=== PATIENT | female | born 1960 | race Caucasian/White ===

== ENCOUNTER → 2020-07-01 13:03 | Outpatient (BNVA) | payer OTHER, SELFPAY | PROVIDERS: PCP Internal Medicine; Referring Provider Internal Medicine; Visit Provider Advanced Practice Midwife | DX: Z76.89 Persons encountering health services in other specified circumstances (principal) ==

== ENCOUNTER 2020-07-19 09:09 | Day surgery (SDC) | payer OTHER, SELFPAY ==
--- NOTE | 2020-07-18 09:56 | HO.ANESPROP2 ---
Documented by User: Myriam Sharma 07/18/20 09:59 HPI - Anesthesia Eval Consult details Narrative: 60yo F for Upper Endoscopy PMFSH Past Medical History Medical History Hx of gastritis Hx of hyperlipidemia Other cyst of bone, left thigh Family History Family History Father Lung cancer Mother History of breast cancer Hypertension Surgical History Surgical History Hx of colonoscopy Hx of hysterectomy Hx of tonsillectomy Social History Social History Alcohol intake: never Smoking Status: Never smoker Second Hand Smoke Exposure: No Use of substances other than those prescribed or required for medical reasons: No Advance Directives: No Advance Directives Information Provided: No Advance Directives on File: No Meds Allergies Allergy/AdvReac Type Severity Reaction Status Date / Time No Known Allergies Allergy Unverified 05/23/20 19:29 Home Medications Medication Instructions Recorded Confirmed Type fenofibrate 160 mg tablet 160 mg PO DAILY 07/01/20 History Exam Exam Date and Time: July 18, 2020 0956 Pertinent Lab Results Pertinent Lab Results: Laboratory Tests 05/06/20 05/06/20 10:37 10:37 WBC 4.3 L Hgb 12.4 Hct 39.2 Plt Count 269 Sodium 139 Potassium 4.4 Chloride 105 BUN 12 Creatinine 0.77 Assessment and Plan Assessment Anesthesia Assessment: Chart Reviewed Documented by User: Augustin Pike 07/19/20 11:07 PMFSH Past Medical History Medical History Hx of gastritis Hx of hyperlipidemia Other cyst of bone, left thigh Family History Family History Father Lung cancer Mother History of breast cancer Hypertension Surgical History Surgical History Hx of colonoscopy Hx of hysterectomy Hx of tonsillectomy Social History Social History Alcohol intake: never Smoking Status: Never smoker Second Hand Smoke Exposure: No Use of substances other than those prescribed or required for medical reasons: No Advance Directives: No Advance Directives Information Provided: No Advance Directives on File: No Meds Allergies Allergy/AdvReac Type Severity Reaction Status Date / Time No Known Allergies Allergy Unverified 05/23/20 19:29 Home Medications Medication Instructions Recorded Confirmed Type fenofibrate 160 mg tablet 160 mg PO DAILY 07/01/20 History Exam Airway Mallampati Class: II TM Dist: >3cm Neck ROM: Full Loose/Missing/Broken Teeth: No Heart: rrr+[id number] Lungs: cta b/l Assessment and Plan Assessment Anesthesia Assessment: Anesthesia Plan Discussed, PAT Visit and Chart Reviewed Final Anesthetic Review NPO: Yes ASA Class: II Final Preanesthetic Review: No Changes in Pt Med Stat, Meds/Allgs Chart Reviewed, Consent Obtained/Reviewed and Anes Risks/Benef Reviewed Patient Risk: Low Procedure Risk: Low Assessment/Block/Sedation in SS: Assess/Block/Sedation-SS Anesthetic Plan Anesthetic Plan: MAC: Disposition: Standard PACU
[2020-07-18 10:46] VITALS: BMI 27.4
[2020-07-19 10:26] VITALS: BP 135/83; PULSE 70; RESP 18; TEMP 35.7; O2SAT 99
[2020-07-19] MEDS: Lactated Ringers 1,000 ML 100 ML IVCONT (11:04)
[2020-07-19 11:27] VITALS: BP 108/73; PULSE 75; RESP 18; TEMP 36.2; O2SAT 98
--- NOTE | 2020-07-19 11:32 | PM.OP ---
Brief Operative Note Date of Service: 07/19/20 Pre-op diagnosis: GERD Post-op diagnosis: other (Same, hiatal hernia) Procedure: EGD with biopsy Surgeon: French Garcia Anesthesia: MAC Estimated blood loss (mL): 2.0 Pathology: other (A. EG Junction at 35cm) Condition: stable Disposition: PACU
[2020-07-19 11:42] VITALS: BP 112/70; PULSE 72; RESP 18; O2SAT 98
--- NOTE | 2020-07-19 12:30 | OP_ITS ---
SURGEON: French Garcia MD INDICATIONS: The patient presents for evaluation of gastroesophageal reflux. Full consent has been obtained from her for this, including risks of bleeding and perforation. PREOPERATIVE DIAGNOSIS: Gastroesophageal reflux. POSTOPERATIVE DIAGNOSIS: PROCEDURE PERFORMED: Esophagogastroduodenoscopy with biopsy. ESTIMATED BLOOD LOSS: COMPLICATIONS: ANESTHESIA: Monitored anesthesia care. ASSISTANTS: SPECIMENS: POSTOPERATIVE DIAGNOSES: Gastroesophageal reflux, small hiatal hernia. DESCRIPTION OF PROCEDURE: The patient was placed in the left lateral decubitus position. The Olympus video gastroscope was passed in the posterior oropharynx and upper esophagus under direct vision. The scope was passed slowly to the distal esophagus. The gastroesophageal junction appeared at 35 cm. There was a very minimal irregularity, but no evidence of esophagitis nor any definitive evidence of Barth's mucosa. There was a small hiatal hernia. The scope was advanced to pylorus and duodenum cannulated to the descending portion. The duodenum including the bulb appeared normal without mass or ulceration. The scope was withdrawn back in the stomach. The gastric antrum and body appeared normal with good peristalsis. The scope was retroflexed visualizing the proximal stomach carefully which appeared normal, without any sign of mass or ulceration. The scope was straightened out and withdrawn back into the esophagus. Biopsies were obtained at the EG junction at 35 cm. Proximal to this, the esophageal mucosa appeared normal. The scope was withdrawn from the patient. She tolerated procedure well and was returned to recovery area in stable condition. IMPRESSION: Small hiatal hernia, gastroesophageal reflux. PLAN: The results of the biopsies will be checked. At this point, she reports that she is using Nexium basically p.r.n. with good relief of any reflux symptoms. I do not think she needs to be on daily acid suppression unless her symptoms require it. If things otherwise remain stable, she can see me on a p.r.n. basis. She should have a screening colonoscopy in 5 years given negative exams in 1999 and 2014 in [place] and no family history of colon cancer. MD EFREN Choi/HUSAM / [id number]
== END 2020-07-19 12:15 | disposition home or self-care (01) ==
PROVIDERS: PCP Internal Medicine; Visit Provider Internal Medicine
PROC: 0DJ08ZZ Inspection of Upper Intestinal Tract, Via Natural or Artificial Opening Endoscopic (ICD-10-PCS; CPT 43235; principal; 2020-07-19 10:40)
DX: K21.9 Gastro-esophageal reflux disease without esophagitis (principal); K22.4 Dyskinesia of esophagus; K44.9 Diaphragmatic hernia without obstruction or gangrene; Z87.19 Personal history of other diseases of the digestive system; Z79.899 Other long term (current) drug therapy
CPT/HCPCS: 43239; 88305

== ENCOUNTER 2020-07-30 10:55 | Outpatient (REF) | payer OTHER, SELFPAY ==
[2020-07-30 11:30] LABS: COVID-19 Test Negative (Negative)
== END 2020-07-30 10:56 | disposition home or self-care (01) ==
LOC: HO.EMPCOV 10:55
PROVIDERS: PCP Internal Medicine; Visit Provider Internal Medicine
DX: Z20.828 Contact with and (suspected) exposure to other viral communicable diseases (principal)
CPT/HCPCS: 87635; C9803

== ENCOUNTER 2020-08-26 12:04 | Outpatient (REF) | payer OTHER, SELFPAY ==
[2020-08-26 13:03] LABS: COVID-19 Test Negative (Negative)
== END 2020-08-26 12:05 | disposition home or self-care (01) ==
LOC: HO.EMPCOV 12:04
PROVIDERS: Visit Provider Internal Medicine
DX: Z20.828 Contact with and (suspected) exposure to other viral communicable diseases (principal)
CPT/HCPCS: 87635; C9803

== ENCOUNTER 2020-12-26 07:42 | Outpatient (REF) | payer OTHER, SELFPAY | END 2020-12-26 07:43 | disposition home or self-care (01) | LOC: HO.EMPCOV 07:42 | PROVIDERS: Visit Provider Internal Medicine | DX: Z20.822 Contact with and (suspected) exposure to COVID-19 (principal) | CPT/HCPCS: C9803; U0003; U0005 ==

== ENCOUNTER 2021-02-24 12:56 | Outpatient (REF) | payer OTHER, SELFPAY ==
--- NOTE | ~2021-02-24 | MM_ITS ---
EXAMINATION: MM DIAGNOSTIC DIGITAL BREAST TOMOSYNTHESIS, BILATERAL CLINICAL INFORMATION: Due for yearly. Also follow-up probable benign calcifications lower outer right breast. The lifetime risk of breast cancer based on the Tyrer-Cuzick Model is 13%. COMPARISON: Mammography: 02/23/2020, 08/24/2019, 02/20/2019, 02/15/2019 (BI-RADS 0), 01/17/2018 TECHNIQUE: Digital breast tomosynthesis is performed in both the craniocaudal and mediolateral oblique views along with computer-aided detection (CAD). Synthesized 2D images are generated from the tomosynthesis. Additional magnification views right breast are obtained in the CC and ML projections. FINDINGS: There are scattered areas of fibroglandular density (ACR BI-RADS breast composition Category b). Parenchymal pattern is similar to prior studies. There is no developing density or interval mass or architectural abnormality. There is a smooth nodule again seen posterior central right breast just lateral to posterior nipple line. The axilla and skin contours are unremarkable. Calcifications for follow-up outer right breast are stable to decreased. There are now considered to be benign. Results are provided to the patient at time of visit by the technologist. MM/MM tomosynthesis diagnostic BI IMPRESSION: 1. No significant changes from prior studies. 2. Right breast calcifications are stable to decreased and now considered to be benign. ASSESSMENT: BI-RADS 2: Benign RECOMMENDATION: Routine annual mammography screening. This patient's information was entered into a reminder system with a target due date for their next mammogram.
== END 2021-02-24 12:57 | disposition home or self-care (01) ==
LOC: HO.MAMMO 12:56
PROVIDERS: Visit Provider Internal Medicine
DX: R92.1 Mammographic calcification found on diagnostic imaging of breast (principal)
CPT/HCPCS: 77062; 77066

== ENCOUNTER 2021-02-28 07:38 | Outpatient (REF) | payer OTHER, SELFPAY ==
[2021-02-28 08:15] LABS: MANUAL DIFF FLAG NO
[2021-02-28 08:17] LABS: Basophils Percent Auto 0.7 % (0-2); Eosinophils Absolute Auto 0.1 X10*3/uL (0.0-0.4); Eosinophils Percent Auto 3.1 % (0-4); Hematocrit 38.7 % (37-47); Hemoglobin 12.4 g/dl (12.0-16.0); Imm Gran Abs Auto 0.01 X10*3/uL (0.00-0.03); Imm Gran Pct Auto 0.2 % (0.0-0.4); Lymphocytes Absolute Auto 2.1 X10*3/uL (1.2-4.9); Lymphocytes Percent Auto 45.3 % (20-40); Mean Corpuscular Hemoglobin 26.7 pg (27.0-33.0); Mean Corpuscular Volume 83.4 fL (80-98); Mean Platelet Volume 10.7 fL (9.4-12.3); Monocytes Absolute Auto 0.5 X10*3/uL (0.1-1.2); Monocytes Percent Auto 9.9 % (2-11); Neutrophils Absolute Auto 1.9 X10*3/uL (2.0-8.3); Neutrophils Percent Auto 40.8 % (45-73); Platelet Count 284 X10*3/uL (160-400); Red Blood Count 4.64 X10*6/uL (4.20-5.50); White Blood Count 4.5 X10*3/uL (4.8-10.8)
[2021-02-28 08:51] LABS: Alanine Aminotransferase 23 U/L (0-31); Albumin Level 4.8 g/dL (3.5-5.0); Alkaline Phosphatase 43 U/L (39-117); Anion Gap 11 (12-20); Aspartate Amino Transferase 22 U/L (5-31); Bilirubin Total 0.5 mg/dL (0.0-1.0); Blood Urea Nitrogen 17 mg/dL (9-16); Calcium 10.2 mg/dL (8.4-10.2); Carbon Dioxide 29 mmol/L (22-29); Chloride 106 mmol/L (96-108); Cholesterol 183 mg/dL; Estimated Glomerular Filt Rate > 60; Glucose Fasting 89 mg/dL (60-99); HDL Cholesterol 48 mg/dL; LDL Cholesterol Calculated 121 mg/dl; Potassium 4.9 mmol/L (3.3-5.1); Sodium 141 mmol/L (135-145); Total Protein 7.5 g/dL (6.5-8.0); Triglycerides 71 mg/dL
[2021-02-28 09:11] LABS: TSH reflex Free T4 1.41 uIU/mL (0.32-4.0)
== END 2021-02-28 07:39 | disposition home or self-care (01) ==
LOC: HO.LAB 07:38
PROVIDERS: PCP Internal Medicine; Visit Provider Internal Medicine
DX: K29.70 Gastritis, unspecified, without bleeding (principal); E78.2 Mixed hyperlipidemia
CPT/HCPCS: 36415; 80053; 80061; 84443; 85025

== ENCOUNTER 2021-07-07 07:30 | Outpatient (REF) | payer OTHER, SELFPAY ==
[2021-07-07 07:49] LABS: MANUAL DIFF FLAG NO
[2021-07-07 07:59] LABS: Basophils Absolute Auto 0.1 X10*3/uL (0.0-0.2); Basophils Percent Auto 1.2 % (0-2); Eosinophils Absolute Auto 0.1 X10*3/uL (0.0-0.4); Eosinophils Percent Auto 2.4 % (0-4); Hemoglobin 12.1 g/dl (12.0-16.0); Lymphocytes Absolute Auto 1.9 X10*3/uL (1.2-4.9); Lymphocytes Percent Auto 45.9 % (20-40); Mean Corpuscular HGB Conc 31.8 g/dl (31.0-35.0); Mean Corpuscular Hemoglobin 26.8 pg (27.0-33.0); Mean Corpuscular Volume 84.3 fL (80.0-98.0); Mean Platelet Volume 10.5 fL (9.4-12.3); Monocytes Absolute Auto 0.4 X10*3/uL (0.1-1.2); Monocytes Percent Auto 10.7 % (2-11); Neutrophils Absolute Auto 1.63 x10*3/uL (2.0-8.3); Neutrophils Percent Auto 39.8 % (45-73); Platelet Count 266 X10*3/uL (160-400); Red Blood Count 4.51 X10*6/uL (4.20-5.50); Red Cell Distribution Width 14.4 % (11.0-16.0); White Blood Count 4.1 X10*3/uL (4.8-10.8)
[2021-07-07 08:24] LABS: Alanine Aminotransferase 31 U/L (0-31); Albumin Level 4.7 g/dL (3.5-5.0); Alkaline Phosphatase 45 U/L (39-117); Anion Gap 12 (12-20); Aspartate Amino Transferase 26 U/L (5-31); Bilirubin Total 0.7 mg/dL (0.0-1.0); Blood Urea Nitrogen 13 mg/dL (9-16); Calcium 9.9 mg/dL (8.4-10.2); Carbon Dioxide 28 mmol/L (22-29); Chloride 106 mmol/L (96-108); Cholesterol 162 mg/dL; Estimated Glomerular Filt Rate > 60; Glucose Fasting 88 mg/dL (60-99); HDL Cholesterol 51 mg/dL; LDL Cholesterol Calculated 98 mg/dl; Potassium 4.4 mmol/L (3.3-5.1); Sodium 142 mmol/L (135-145); Total Protein 7.2 g/dL (6.5-8.0); Triglycerides 66 mg/dL
[2021-07-07 08:48] LABS: Vitamin D 25-OH Total 32.7 ng/mL (>30)
[2021-07-07 10:50] LABS: Appearance Urine HAZY; Color Urine YELLOW; Glucose Urine UA NEG (NEG); Leukocyte Esterase Urine NEG (NEG); Nitrite Urine NEG (NEG); Specific Gravity - Urine 1.025 (1.005-1.025); Urine Blood NEG (NEG); Urine Ketones NEG (NEG); Urine Protein NEG (NEG-TRACE)
== END 2021-07-07 07:31 | disposition home or self-care (01) ==
LOC: HO.LAB 07:30
PROVIDERS: PCP Internal Medicine; Visit Provider Internal Medicine
DX: Z00.00 Encounter for general adult medical examination without abnormal findings (principal); E55.9 Vitamin D deficiency, unspecified; E78.2 Mixed hyperlipidemia; K29.50 Unspecified chronic gastritis without bleeding
CPT/HCPCS: 36415; 80053; 80061; 81003; 82306; 85025

== ENCOUNTER 2022-01-02 07:14 | Outpatient (REF) | payer OTHER, SELFPAY ==
[2022-01-02 08:32] LABS: Alanine Aminotransferase 27 U/L (0-31); Albumin Level 4.6 g/dL (3.5-5.0); Alkaline Phosphatase 45 U/L (39-117); Anion Gap 11 (12-20); Aspartate Amino Transferase 24 U/L (5-31); Bilirubin Total 0.4 mg/dL (0.0-1.0); Blood Urea Nitrogen 13 mg/dL (9-16); Calcium 10.3 mg/dL (8.4-10.2); Carbon Dioxide 29 mmol/L (22-29); Chloride 105 mmol/L (96-108); Cholesterol 158 mg/dL; Estimated Glomerular Filt Rate > 60; Glucose Fasting 89 mg/dL (60-99); HDL Cholesterol 53 mg/dL; LDL Cholesterol Calculated 92 mg/dl; Potassium 4.5 mmol/L (3.3-5.1); Sodium 140 mmol/L (135-145); Total Protein 7.2 g/dL (6.5-8.0); Triglycerides 65 mg/dL
[2022-01-02 08:53] LABS: TSH reflex Free T4 1.66 uIU/mL (0.32-4.0)
== END 2022-01-02 07:15 | disposition home or self-care (01) ==
LOC: HO.LAB 07:14
PROVIDERS: PCP Internal Medicine; Visit Provider Internal Medicine
DX: E78.00 Pure hypercholesterolemia, unspecified (principal)
CPT/HCPCS: 36415; 80053; 80061; 84443

== ENCOUNTER 2022-02-25 13:52 | Outpatient (REF) | payer OTHER, SELFPAY ==
--- NOTE | ~2022-02-25 | MM_ITS ---
EXAMINATION: MM SCREENING DIGITAL BREAST TOMOSYNTHESIS, BILATERAL CLINICAL INFORMATION: Screening. Asymptomatic. The lifetime risk of breast cancer based on the Tyrer-Cuzick Model is 15%. COMPARISON: Mammography: 02/24/2021, 02/23/2020, 08/24/2019, 02/20/2019, 01/17/2018 TECHNIQUE: Digital breast tomosynthesis is performed in both the craniocaudal and mediolateral oblique views along with computer-aided detection (CAD). Synthesized 2D images are generated from the tomosynthesis. Additional left MLO view is provided. FINDINGS: There are scattered areas of fibroglandular density (ACR BI-RADS breast composition Category b). Parenchymal pattern is similar to prior studies. Small smooth nodular asymmetry posterior central right breast on CC view is stable. There is no developing density or architectural abnormality. There are no abnormal calcifications. Some punctate digital processing artifact is present retroareolar right breast on CC view synthesized view. No calcifications on tomography or MLO view and this area. The axilla and skin contours are unremarkable. MM/MM tomosynthesis screening BI IMPRESSION: No mammographic evidence of malignancy. ASSESSMENT: BI-RADS 2: Benign RECOMMENDATION: Routine annual mammography screening. This patient's information was entered into a reminder system with a target due date for their next mammogram.
== END 2022-02-25 13:53 | disposition home or self-care (01) ==
LOC: HO.MAMMO 13:52
PROVIDERS: PCP Internal Medicine; Visit Provider Internal Medicine
DX: Z12.31 Encounter for screening mammogram for malignant neoplasm of breast (principal)
CPT/HCPCS: 77063; 77067

== ENCOUNTER 2022-07-06 07:36 | Outpatient (REF) | payer OTHER, SELFPAY ==
[2022-07-06 07:48] LABS: MANUAL DIFF FLAG NO
[2022-07-06 08:10] LABS: Basophils Absolute Auto 0.1 X10*3/uL (0.0-0.2); Basophils Percent Auto 1.7 % (0-2); Eosinophils Absolute Auto 0.1 X10*3/uL (0.0-0.4); Eosinophils Percent Auto 2.2 % (0-4); Hematocrit 39.9 % (37.0-47.0); Hemoglobin 12.5 g/dl (12.0-16.0); Lymphocytes Absolute Auto 1.7 X10*3/uL (1.2-4.9); Lymphocytes Percent Auto 40.8 % (20-40); Mean Corpuscular HGB Conc 31.3 g/dl (31.0-35.0); Mean Corpuscular Hemoglobin 26.2 pg (27.0-33.0); Mean Corpuscular Volume 83.5 fL (80.0-98.0); Mean Platelet Volume 10.4 fL (9.4-12.3); Monocytes Absolute Auto 0.5 X10*3/uL (0.1-1.2); Monocytes Percent Auto 11.9 % (2-11); Neutrophils Absolute Auto 1.8 x10*3/uL (2.0-8.3); Neutrophils Percent Auto 43.4 % (45-73); Platelet Count 286 X10*3/uL (160-400); Red Blood Count 4.78 X10*6/uL (4.20-5.50); Red Cell Distribution Width 14.6 % (11.0-16.0); White Blood Count 4.1 X10*3/uL (4.8-10.8)
[2022-07-06 08:29] LABS: Alanine Aminotransferase 31 U/L (0-31); Albumin Level 4.8 g/dL (3.5-5.0); Alkaline Phosphatase 44 U/L (39-117); Anion Gap 16 (12-20); Aspartate Amino Transferase 27 U/L (5-31); Bilirubin Total 0.4 mg/dL (0.0-1.0); Blood Urea Nitrogen 14 mg/dL (9-16); Carbon Dioxide 25 mmol/L (22-29); Chloride 106 mmol/L (96-108); Cholesterol 170 mg/dL; Estimated Glomerular Filt Rate > 60; Glucose Fasting 87 mg/dL (60-99); HDL Cholesterol 52 mg/dL; LDL Cholesterol Calculated 108 mg/dl; Phosphorus 3.7 mg/dL (2.7-4.5); Potassium 4.9 mmol/L (3.3-5.1); Sodium 142 mmol/L (135-145); Total Protein 7.6 g/dL (6.5-8.0); Triglycerides 53 mg/dL
[2022-07-06 08:50] LABS: TSH reflex Free T4 1.81 uIU/mL (0.32-4.0); Vitamin D 25-OH Total 29.9 ng/mL (>30)
[2022-07-06 08:53] LABS: Appearance Urine Cloudy; Color Urine Yellow; Glucose Urine UA Negative (Negative); Leukocyte Esterase Urine Small (1+) (Negative); Nitrite Urine Negative (Negative); UMIC TRIGGER UACC YES; Urine Blood Negative (Negative); Urine Ketones Negative (Negative); Urine Protein Negative (Neg-Trace)
[2022-07-06 09:09] LABS: Bacteria Urine None Seen (None Seen); Hyaline Casts Urine 0-2 /LPF (0-2); RBC Urine 0-2 /HPF (0-2); UACC Culture Trigger YES; WBC Urine 0-5 /HPF (0-5)
[2022-07-07 11:42] LABS: Calcium (PTHI) 10.1 mg/dL (8.6-10.4); PTHI 67 pg/mL (16-77)
== END 2022-07-06 07:37 | disposition home or self-care (01) ==
LOC: HO.LAB 07:36
PROVIDERS: PCP Internal Medicine; Visit Provider Internal Medicine
DX: Z00.00 Encounter for general adult medical examination without abnormal findings (principal); E78.00 Pure hypercholesterolemia, unspecified; E83.52 Hypercalcemia; I10 Essential (primary) hypertension
CPT/HCPCS: 36415; 80053; 80061; 81001; 82306; 83970; 84100; 84443; 85025; 87086

== ENCOUNTER 2022-10-09 10:31 | Outpatient (REF) | payer OTHER, SELFPAY ==
--- NOTE | ~2022-10-09 | XR_ITS ---
EXAMINATION: XR FACIAL BONES CLINICAL INFORMATION: Headache COMPARISON: None TECHNIQUE: 6 views of the facial bones. FINDINGS: There are no fractures or dislocations. Visualized sinuses are grossly appear aerated, with no fluid levels visualized. Multifocal dental amalgam noted. Lung apices are clear. Degeneration in the dense-anterior C1 arch articulation.. XR/XR facial bones min 3V IMPRESSION: No acute osseous abnormality. No gross sinus opacification is identified. Further evaluation with CT scan as clinically warranted.
--- NOTE | ~2022-10-09 | XR_ITS ---
EXAMINATION: X-RAY RIGHT WRIST CLINICAL INFORMATION: Soft tissue disorder COMPARISON: None TECHNIQUE: 4 views FINDINGS: No visible acute fracture or dislocation. Ulnar positive variance. Mild DIP joint arthritis, with the joint space narrowing, small marginal osteophytes. No erosions. No abnormal soft tissue calcification. Normal bone mineralization. XR/XR hand wrist RT IMPRESSION: Mild DIP joint osteoarthritis.
--- NOTE | ~2022-10-09 | XR_ITS ---
EXAMINATION: XR SHOULDER, RIGHT CLINICAL INFORMATION: Pain COMPARISON: None TECHNIQUE: AP external rotation, Grashey, scapular Y, and axillary views of the right shoulder. FINDINGS: No fracture. Glenohumeral and acromioclavicular alignment is anatomic with normal joint space. Tiny inferior glenoid spur. No abnormal soft tissue calcifications. XR/XR shoulder RT min 2V IMPRESSION: No acute findings. Tiny inferior glenoid spur.
== END 2022-10-09 10:32 | disposition home or self-care (01) ==
LOC: HO.XRAY 10:31
PROVIDERS: PCP Internal Medicine; Visit Provider Nurse Practitioner Family
DX: M79.89 Other specified soft tissue disorders (principal); M25.511 Pain in right shoulder; R51.9 Headache, unspecified; Z91.81 History of falling
CPT/HCPCS: 70150; 73030; 73110; 73130

== ENCOUNTER → 2022-11-04 14:42 | Outpatient (BNVA) | payer OTHER, SELFPAY | PROVIDERS: PCP Internal Medicine; Visit Provider Advanced Practice Midwife | DX: Z13.89 Encounter for screening for other disorder (principal) ==

== ENCOUNTER → 2022-11-10 09:44 | Outpatient (BNVA) | payer OTHER, SELFPAY | PROVIDERS: PCP Internal Medicine; Visit Provider Surgery Vascular Surgery | DX: Z13.89 Encounter for screening for other disorder (principal) ==

== ENCOUNTER 2022-11-19 08:18 | Outpatient (REF) | payer OTHER, SELFPAY ==
--- NOTE | ~2022-11-19 | US_ITS ---
EXAMINATION: US LOWER EXTREMITY VENOUS (REFLUX EXAM), BILATERAL CLINICAL INDICATION: Varicose veins a right lower extremity with inflammation COMPARISON: None. TECHNIQUE: Color flow triplex imaging and compression Doppler was performed to evaluate both the deep and the superficial systems bilaterally. To evaluate the superficial system, the examination was performed in the upright position. Color-flow Doppler ultrasound and compression ultrasound were utilized. In addition, maneuvers were utilized to demonstrate reflux. FINDINGS: RIGHT: 1. DEEP VENOUS ULTRASOUND OF THE RIGHT LOWER EXTREMITY: Common Femoral Vein: Compressible, normal respiratory variation and augmented flow. Popliteal Vein: Compressible, normal augmentation. Deep Venous Reflux: There is no evidence of reflux in the deep system in either the common femoral vein or the popliteal vein. There is no evidence of a Kwong's cyst. 2. SUPERFICIAL ULTRASOUND WITH DOPPLER OF RIGHT LOWER EXTREMITY: RIGHT GREAT SAPHENOUS VEIN: Saphenofemoral Junction: 0.5 mm. 3348 ms reflux. Proximal Thigh: 0.6 mm. 3060 ms reflux. Mid Thigh: 0.5 mm. 3564 ms reflux. Above Knee: 0.5 mm. 3536 ms reflux. Below Knee: 0.1 mm. No reflux. Mid Calf: 0 point mm. 2964 ms reflux. Ankle: 0.2 mm. 3168 ms reflux. DUPLICATED GREAT SAPHENOUS VEIN: None RIGHT SMALL SAPHENOUS VEIN: Proximal: 0.3 mm. No reflux. Distal: 0.2 mm. No reflux. LEFT: 1. DEEP VENOUS ULTRASOUND OF THE LEFT LOWER EXTREMITY: Common Femoral Vein: Compressible, normal respiratory variation and augmented flow. Popliteal Vein: Compressible, normal augmentation. Deep Venous Reflux: There is no evidence of reflux in the deep system in either the common femoral vein or the popliteal vein. There is no evidence of a Kwong's cyst. 2. SUPERFICIAL ULTRASOUND WITH DOPPLER OF LEFT LOWER EXTREMITY: LEFT GREAT SAPHENOUS VEIN: Saphenofemoral Junction: 0.5 mm. No reflux. Proximal Thigh: 0.2 mm. No reflux. Mid Thigh: 0.2 mm. 992 ms reflux. Above Knee: 0.2 mm. No reflux. Below Knee: 0.3 mm. No reflux. Mid Calf: 0.1 mm. No reflux. Ankle: 0.2 mm. No reflux. DUPLICATED GREAT SAPHENOUS VEIN: None LEFT SMALL SAPHENOUS VEIN: Proximal: 0.2 mm. No reflux. Distal: Not seen US/US venous duplex LE BI IMPRESSION: 1. Varicose vein arising from the great saphenous vein with prolonged reflux. 2. No evidence of reflux in left lower extremity superficial veins. 3. No evidence of thrombosis or prolonged reflux within the deep veins bilaterally. Abnormal lower extremity venous reflux times: Superficial and deep calf veins: >500 ms Femoropopliteal veins: >1000 ms Perforating veins: >350 ms Willam N, Cas J, Jesus L, Julio AK, Michael SS, Clementina Rodriguez M, Varghese WH. Definition of venous reflux in lower-extremity veins.J Vasc Surg. 2003; [phone].
== END 2022-11-19 08:19 | disposition home or self-care (01) ==
LOC: HO.US 08:18
PROVIDERS: PCP Internal Medicine; Visit Provider Surgery Vascular Surgery
DX: I83.893 Varicose veins of bilateral lower extremities with other complications (principal)
CPT/HCPCS: 93970

== ENCOUNTER 2022-11-27 09:00 | Outpatient (RCR) | payer OTHER, SELFPAY ==
--- NOTE | 2022-11-27 09:44 | MHC.OT.DC ---
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 Continued mild digit edema. Goals met Electronically Signed By: Nettie Jaramillo OT CHT CLT Reviewed/agree with student documentation: Therapist: Please Sign and return to therapist, thank you for your referral.
== END 2022-11-27 09:44 | disposition home or self-care (01) ==
LOC: HO.OT 09:00
PROVIDERS: PCP Internal Medicine; Visit Provider Nurse Practitioner Family
DX: M79.89 Other specified soft tissue disorders (principal)
CPT/HCPCS: 97110; 97165; 97530

== ENCOUNTER → 2022-12-29 08:58 | Outpatient (BNVA) | payer OTHER, SELFPAY | PROVIDERS: PCP Internal Medicine; Visit Provider Surgery Vascular Surgery | DX: I83.11 Varicose veins of right lower extremity with inflammation (principal) | CPT/HCPCS: 99212 ==

== ENCOUNTER 2022-12-30 07:28 | Outpatient (REF) | payer OTHER, SELFPAY ==
[2022-12-30 08:11] LABS: Alanine Aminotransferase 34 U/L (0-31); Albumin Level 4.6 g/dL (3.5-5.0); Alkaline Phosphatase 50 U/L (39-117); Anion Gap 12 (12-20); Aspartate Amino Transferase 29 U/L (5-31); Bilirubin Total 0.6 mg/dL (0.0-1.0); Blood Urea Nitrogen 15 mg/dL (9-16); Calcium 9.7 mg/dL (8.4-10.2); Carbon Dioxide 29 mmol/L (22-29); Chloride 107 mmol/L (96-108); Cholesterol 170 mg/dL; Estimated Glomerular Filt Rate > 60; Glucose Fasting 88 mg/dL (60-99); HDL Cholesterol 47 mg/dL; LDL Cholesterol Calculated 112 mg/dl; Potassium 4.6 mmol/L (3.3-5.1); Sodium 143 mmol/L (135-145); Triglycerides 55 mg/dL
[2022-12-30 08:33] LABS: Appearance Urine Clear; Color Urine Yellow; Glucose Urine UA Negative (Negative); Leukocyte Esterase Urine Moderate (2+) (Negative); Nitrite Urine Negative (Negative); PH 6.5 (5.0-9.0); UMIC TRIGGER UACC YES; Urine Blood Negative (Negative); Urine Ketones Negative (Negative); Urine Protein Negative (Neg-Trace)
[2022-12-30 08:48] LABS: Bacteria Urine 1+ (None Seen); Hyaline Casts Urine 0-2 /LPF (0-2); RBC Urine 0-2 /HPF (0-2); WBC Urine 0-5 /HPF (0-5)
== END 2022-12-30 07:29 | disposition home or self-care (01) ==
LOC: HO.LAB 07:28
PROVIDERS: PCP Internal Medicine; Visit Provider Internal Medicine
DX: E78.00 Pure hypercholesterolemia, unspecified (principal)
CPT/HCPCS: 36415; 80053; 80061; 81001

== ENCOUNTER → 2023-02-26 07:30 | Outpatient (BNVA) | payer OTHER, SELFPAY | PROVIDERS: PCP Internal Medicine; Visit Provider Surgery Vascular Surgery | DX: I83.11 Varicose veins of right lower extremity with inflammation (principal) | CPT/HCPCS: 36482 ==

== ENCOUNTER 2023-03-01 15:16 | Outpatient (REF) | payer OTHER, SELFPAY | END 2023-03-01 15:17 | disposition home or self-care (01) | LOC: HO.US 15:16 | PROVIDERS: PCP Internal Medicine; Visit Provider Surgery Vascular Surgery | DX: M79.604 Pain in right leg (principal) | CPT/HCPCS: 93971 ==

== ENCOUNTER 2023-03-11 11:08 | Outpatient (REF) | payer OTHER, SELFPAY ==
--- NOTE | ~2023-03-11 | MM_ITS ---
EXAMINATION: MM SCREENING DIGITAL BREAST TOMOSYNTHESIS, BILATERAL CLINICAL INFORMATION: Screening. Asymptomatic. The lifetime risk of breast cancer based on the Tyrer-Cuzick Model is 14.5%. COMPARISON: Mammography: This study is compared with prior exams dating back to 2019. TECHNIQUE: Digital breast tomosynthesis is performed in both the craniocaudal and mediolateral oblique views along with computer-aided detection (CAD). Synthesized 2D images are generated from the tomosynthesis. FINDINGS: There are scattered areas of fibroglandular density (ACR BI-RADS breast composition Category b). There are no significant masses, abnormal calcifications, or other abnormalities. MM/MM tomosynthesis screening BI IMPRESSION: No mammographic evidence of malignancy. ASSESSMENT: BI-RADS BI-RADS 1 - Negative RECOMMENDATION: Routine annual mammography screening. 1 year F/U This examination should not preclude the clinical evaluation of a suspicious palpable abnormality. This patient's information was entered into a reminder system with a target due date for their next mammogram.
== END 2023-03-11 11:09 | disposition home or self-care (01) ==
LOC: HO.MAMMO 11:08
PROVIDERS: PCP Internal Medicine; Visit Provider Internal Medicine
DX: Z12.31 Encounter for screening mammogram for malignant neoplasm of breast (principal)
CPT/HCPCS: 77063; 77067

== ENCOUNTER → 2023-03-11 11:15 | Outpatient (BNV) | payer OTHER, SELFPAY | PROVIDERS: PCP Internal Medicine; Visit Provider Radiology Diagnostic Radiology | DX: Z12.31 Encounter for screening mammogram for malignant neoplasm of breast (principal) | CPT/HCPCS: 77063; 77067 ==

== ENCOUNTER 2023-03-16 12:58 | Outpatient (AMB) | payer OTHER, SELFPAY ==
[2023-03-16 12:58] VITALS: BMI 27.5
--- NOTE | 2023-03-16 12:58 | MHC.OFFVIS ---
Intake Vital Signs 03/16/23 12:58 Height 5 ft 4 in Weight 160 lb BMI 27.5 Intake Visit Reasons: 2 week post R GSV Venaseal 02/26/23 Intake Note: 2 week follow up Right GSV Venaseal 02/26/2023. Pt states that Right LE is feeling good. No issues on the left LE Accompanied by: Self / Same As Patient Allergies No Known Allergies Allergy (Verified 03/16/23 13:03) HPI 2 week post R GSV Venaseal 02/26/23 HPI Details Very pleasant 62-year-old female presents for follow-up status post right great saphenous vein ablation. She reports overall the swelling and discomfort has been doing significantly better. She reports that in general her legs feel much better but there is a cluster in the right calf that has been bothering her she now presents for postprocedure follow-up. Of note postprocedure ultrasound was negative for DVT. [facility] Medical History Anxiety Gastritis Hx of hyperlipidemia Lumbar back pain with radiculopathy affecting left lower extremity Mixed hyperlipidemia Other cyst of bone, left thigh Overweight (BMI 25.0-29.9) Surgical History Hx of colonoscopy Hx of hysterectomy Hx of tonsillectomy Family History Father Lung cancer Mother History of breast cancer, Onset Age: 65 Hypertension Social History Housing: Condominium Alcohol intake: never Patient Tobacco Use Status: Never used Tobacco e-Cigarette/Vaping Use: Never Used Second Hand Smoke Exposure: No service: No Current occupational status: employed Cognitive needs: No Hearing needs: No Vision needs: Yes Female Reproductive History Menstrual Age of Menarche: 10 Review of Systems Const Reports as per HPI ENT Reports no additional complaints Card Denies chest pain, Denies chest pain at rest and Denies chest pain with activity Resp Denies chest congestion and Denies cough GI Reports no additional complaints Musc Details: pain over varicosities, aching of lower extremities, swelling, cramping, heaviness and tiredness, itching Denies abnormal gait Skin/Breast Reports pruritus and Denies wounds Neuro Reports no additional complaints and Denies abnormal gait Psych Denies no additional complaints Physical Exam Vital Signs: BMI result Body Mass Index 27.5 Const General: cooperative, healthy appearing and comfortable Orientation/consciousness: oriented to person, oriented to place and oriented to time Neck Carotids: no bruits Chest Chest palpation & inspection: normal inspection of the chest and normal palpation of entire chest wall Resp Effort & Inspection: normal respiratory effort and able to speak in complete sentences Cardio Rate: regular rate Heart sounds: S1 normal heart sound present and S2 normal heart sound present Peripheral pulses: Peripheral pulses 2+ throughout GI Inspection: Yes normal to inspection Skin Other: +2 edema, large rope-like varicosities greater than 4 mm right calf cluster CEAP Classification C4 - skin color changes Ep - Etiology Primary As - superficial veins P - reflux General skin exam: dry skin Neuro General: oriented to person, oriented to place and oriented to time Extrem Right lower extremity: full ROM, normal capillary refill and edema Left lower extremity: full ROM, normal capillary refill and edema Psych Mental Status: mental status grossly normal Results Reviewed Results Reviewed: Brief summary of venous insufficiency testing is as follows: right great saphenous vein: Ablated right small saphenous vein: negative right accessory vein: none present left great saphenous vein: negative left small saphenous vein: negative left accessory vein: none present Please note there is no evidence of any venous aneurysms or significant tortuosity Assessment & Plan Assessment & Plan (1) Varicose veins of right lower extremity with inflammation: Code(s): I83.11 - Varicose veins of right lower extremity with inflammation Plan: This patient has varicose veins with inflammation. They continue to be a source of discomfort for the patient. The patient has tried conservative treatment with compression, leg elevation and exercise program for over 3 months time. They have been compliant with all treatment. This has provided minimal relief for the patient. I do not anticipate this course of treatment will alter the underlying etiology. The patient has been scheduled for lower extremity venous treatment inclusive of --- right leg microphlebectomy. Risks, benefits, and complications of this procedure has been discussed in detail with the patient including but not limited to bleeding, infection, and the development of a DVT. The patient has demonstrated a clear understanding and has consented. We will schedule the patient as soon as possible. Thank you for allowing us to participate in this patient's care. If there are any questions or concerns please do not hesitate to contact us. Coding Level of Care Code Est Pt Level 4 (76962) Diagnoses Varicose veins of right lower extremity with inflammation I83.11
== END 2023-03-16 13:18 | disposition home or self-care (01) ==
LOC: HO.HVS 12:58
PROVIDERS: PCP Internal Medicine; Visit Provider Surgery Vascular Surgery
DX: I83.11 Varicose veins of right lower extremity with inflammation (principal)
CPT/HCPCS: 99214

== ENCOUNTER → 2023-03-16 12:58 | Outpatient (BNVA) | payer OTHER, SELFPAY | PROVIDERS: PCP Internal Medicine; Visit Provider Surgery Vascular Surgery ==

== ENCOUNTER 2023-04-23 07:07 | Outpatient (AMB) | payer OTHER, SELFPAY ==
[2023-04-23 07:31] VITALS: BMI 27.5
--- NOTE | 2023-04-23 07:31 | MHC.OFFVIS ---
Intake Vital Signs 04/23/23 07:31 Height 5 ft 4 in Weight 160 lb BMI 27.5 Intake Visit Reasons: Right LEG MICRO Allergies No Known Allergies Allergy (Verified 04/23/23 07:31) PFSH Medical History Anxiety Gastritis Hx of hyperlipidemia Lumbar back pain with radiculopathy affecting left lower extremity Mixed hyperlipidemia Other cyst of bone, left thigh Overweight (BMI 25.0-29.9) Surgical History Hx of colonoscopy Hx of hysterectomy Hx of tonsillectomy Family History Father Lung cancer Mother History of breast cancer, Onset Age: 65 Hypertension [facility] Alcohol intake: never Patient Tobacco Use Status: Never used Tobacco e-Cigarette/Vaping Use: Never Used Second Hand Smoke Exposure: No service: No Current occupational status: employed Cognitive needs: No Hearing needs: No Vision needs: Yes Female Reproductive History Menstrual Age of Menarche: 10 Physical Exam Vital Signs: BMI result Body Mass Index 27.5 Office Procedures Vascular Office Procedure Details Details: Diagnosis: Right Leg varicose veins with inflammation Procedure: Right leg Microphlebectomy Anesthesia: Local Infiltration 10 cc, Tumescent: 0 cc. Varicose veins were marked in the standing position on the right leg and the patient was then placed in the supine position. The right lower extremity was prepared and draped to allow knee flexion in the sterile field. The patient had large superficial varicose veins with significant symptoms of pain. It was therefore determined to perform microphlebectomies of the clusters of varicose veins. The patient had bulging varicose veins which were previously marked in the standing position. A small stab incision was made longitudinally directly overlying the varicose vein in the calf and the varicose vein was grasped with a hemostat aided by a vein hook. It was then dissected as far proximally and distally as possible and avulsed. A total of a 11 stab incisions were made and the procedure of stab phlebectomies was repeated 11 times. Hemostasis was checked and stab incision sites were closed with steri-strips and sterile dressing was given with gauze and krilex wrap followed by an ash bandage. There were no complications and blood loss was minimal. Post-Op instructions were given and a follow-up appointment was recommended. [id number] - Phleb Veins, Extrem - up to 20 All charges added?: Procedure code (CPT) selection complete Coding Level of Care Code Procedure Only Diagnoses CPT Codes Details - Vascular 5: 71717 - Phleb Veins, Extrem - up to 20 ([id number])
== END 2023-04-23 08:34 | disposition home or self-care (01) ==
PROVIDERS: PCP Internal Medicine; Visit Provider Surgery Vascular Surgery
DX: I83.11 Varicose veins of right lower extremity with inflammation (principal)
CPT/HCPCS: 37765

== ENCOUNTER → 2023-04-23 07:07 | Outpatient (BNVA) | payer OTHER, SELFPAY | PROVIDERS: PCP Internal Medicine; Visit Provider Surgery Vascular Surgery | DX: I83.11 Varicose veins of right lower extremity with inflammation (principal) | CPT/HCPCS: 37765 ==

== ENCOUNTER 2023-05-06 13:06 | Outpatient (AMB) | payer OTHER, SELFPAY ==
[2023-05-06 13:13] VITALS: BP 118/72; PULSE 68; O2SAT 98; BMI 27.5
--- NOTE | 2023-05-06 13:13 | MHC.OFFVIS ---
Intake Vital Signs 05/06/23 13:13 Height 5 ft 4 in Weight 160 lb BMI 27.5 BP 118/72 Blood Pressure Location Rt brachial Position Sitting Pulse 68 Pulse Source Pulse Oximeter Pulse Oximetry (%) 98 Oxygen Delivery Method Room Air Intake Visit Reasons: 2 wk post right leg micro 04/23/23 Intake Note: Pt presents to the office today for a 2 week s/p right leg micro 04/23/23. Pt states she is feeling very well. Pt states she had some tingling this past wednesday but denies any other numbness or tingling otherwise. Pt denies any swelling. Allergies No Known Allergies Allergy (Verified 05/06/23 13:16) HPI 2 wk post right leg micro 04/23/23 HPI Details very pleasant 62-year-old female presents for follow-up status post microphlebectomy. No postprocedure issues. Extremely happy with how the overall of veins came out. She now presents for routine follow-up postprocedure. FOR[facility]LY [facility], [facility] Medical History Anxiety Gastritis Hx of hyperlipidemia Lumbar back pain with radiculopathy affecting left lower extremity Mixed hyperlipidemia Other cyst of bone, left thigh Overweight (BMI 25.0-29.9) Surgical History Hx of colonoscopy Hx of hysterectomy Hx of tonsillectomy Family History Father Lung cancer Mother History of breast cancer, Onset Age: 65 Hypertension Social History Housing: Condominium Alcohol intake: never Patient Tobacco Use Status: Never used Tobacco e-Cigarette/Vaping Use: Never Used Second Hand Smoke Exposure: No service: No Current occupational status: employed Cognitive needs: No Hearing needs: No Vision needs: Yes Female Reproductive History Menstrual Age of Menarche: 10 Review of Systems Const All systems reviewed & are unremarkable except as noted in HPI and below Reports no additional complaints ENT Reports Normal hearing present Card Denies chest pain, Denies chest pain at rest, Denies chest pain with activity and Denies pedal edema Resp Denies cough GI Denies abdominal pain Musc Denies abnormal gait, Denies muscle cramps and Denies radiating pain into limb Skin/Breast Denies skin ulcer and Denies wounds Neuro Reports Normal hearing present and Denies abnormal gait Psych Reports no additional complaints Physical Exam Vital Signs: Last Vital Signs Pulse 68 05/06/23 13:13 BP 118/72 05/06/23 13:13 Pulse Ox 98 05/06/23 13:13 Oxygen Delivery Method Room Air 05/06/23 13:13 BMI result Body Mass Index 27.5 Const General: cooperative, healthy appearing and comfortable Orientation/consciousness: oriented to person, oriented to place and oriented to time HEENT Head: Yes normal to inspection Neck Neck: Yes normal visual inspection Carotids: no bruits Chest Chest palpation & inspection: normal inspection of the chest Resp Effort & Inspection: normal respiratory effort and able to speak in complete sentences Auscultation: clear to auscultation bilaterally, no crackles, no rales, no rhonchi and no wheezes Cardio Rate: regular rate Rhythm: regular rhythm Heart sounds: S1 normal heart sound present and S2 normal heart sound present Bruits: no carotid bruits Peripheral pulses: Peripheral pulses 2+ throughout GI Inspection: Yes normal to inspection Skin Other: Right leg calf incisions well healed Wounds: no wounds Hair: normal Neuro General: oriented to person, oriented to place and oriented to time Cranial nerves: Yes CN's II-XII intact bilaterally and Yes Normal hearing present Cognition (Neuro): normal cognition Motor exam (neuro): 5/5 motor strength present throughout Extrem Other: venous exam: No significant superficial varicosities or spider telangiectasias, minimal edema General: No clubbing, No cyanosis and No edema Psych Appearance: grossly normal Mental Status: mental status grossly normal Speech and movement: Normal speech and movement present Assessment & Plan Assessment & Plan (1) Varicose veins of right lower extremity with inflammation: Comment: 02/26/2023 - right great saphenous vein Cyanoacralate ablation 04/23/2023 - right leg microphlebectomy Code(s): I83.11 - Varicose veins of right lower extremity with inflammation Plan: The patient has done extremely well with all venous treatments. Patient's may often experience postprocedure phlebitic episodes and I have discussed with the patient use of warm compresses and NSAIDS if tolerated for pain discomfort. In addition, I have discussed continued conservative measures including use of compression, leg elevation, and exercise. The patient was also given an information sheet regarding appropriate use of compression stockings and future purchases. Thank you for allowing us to care for your patient with venous disease. Coding Level of Care Code Global (97084) Diagnoses Varicose veins of right lower extremity with inflammation I83.11
== END 2023-05-06 13:27 | disposition home or self-care (01) ==
PROVIDERS: PCP Internal Medicine; Visit Provider Surgery Vascular Surgery
DX: I83.11 Varicose veins of right lower extremity with inflammation (principal)
CPT/HCPCS: 99024

== ENCOUNTER → 2023-05-06 13:06 | Outpatient (BNVA) | payer OTHER, SELFPAY | PROVIDERS: PCP Internal Medicine; Visit Provider Surgery Vascular Surgery ==

== ENCOUNTER 2023-07-22 14:19 | Outpatient (REF) | payer OTHER, SELFPAY ==
--- NOTE | ~2023-07-22 | XR_ITS ---
EXAMINATION: XR CHEST 2 VIEWS CLINICAL INFORMATION: Other specified respiratory disorders. COMPARISON: Chest radiograph dated 05/06/2020. TECHNIQUE: Frontal and lateral views of the chest were obtained. FINDINGS: The heart, great vessels, pulmonary vasculature and mediastinum are normal. The lungs show no focal infiltrate, effusion or pneumothorax. There is no acute osseous abnormality. XR/XR chest 2V IMPRESSION: No active cardiopulmonary disease.
== END 2023-07-22 14:20 | disposition home or self-care (01) ==
LOC: HO.XRAY 14:19
PROVIDERS: PCP Internal Medicine; Visit Provider Internal Medicine
DX: J98.8 Other specified respiratory disorders (principal)
CPT/HCPCS: 71046

== ENCOUNTER 2023-09-14 07:32 | Outpatient (REF) | payer OTHER, SELFPAY ==
[2023-09-14 07:49] LABS: MANUAL DIFF FLAG NO
[2023-09-14 08:28] LABS: Basophils Absolute Auto 0.1 X10*3/uL (0.0-0.2); Basophils Percent Auto 1.1 % (0-2); Eosinophils Absolute Auto 0.1 X10*3/uL (0.0-0.4); Hematocrit 38.1 % (37.0-47.0); Imm Gran Abs Auto 0.01 X10*3/uL (0.00-0.03); Imm Gran Pct Auto 0.2 % (0.0-0.4); Lymphocytes Absolute Auto 1.9 X10*3/uL (1.2-4.9); Lymphocytes Percent Auto 42.1 % (20-40); Mean Corpuscular HGB Conc 31.5 g/dl (31.0-35.0); Mean Corpuscular Hemoglobin 26.4 pg (27.0-33.0); Mean Corpuscular Volume 83.7 fL (80.0-98.0); Mean Platelet Volume 10.8 fL (9.4-12.3); Monocytes Absolute Auto 0.5 X10*3/uL (0.1-1.2); Monocytes Percent Auto 10.7 % (2-11); Neutrophils Absolute Auto 1.9 x10*3/uL (2.0-8.3); Neutrophils Percent Auto 42.9 % (45-73); Platelet Count 298 X10*3/uL (160-400); Red Blood Count 4.55 X10*6/uL (4.20-5.50); Red Cell Distribution Width 14.9 % (11.0-16.0); White Blood Count 4.4 X10*3/uL (4.8-10.8)
[2023-09-14 08:57] LABS: Alanine Aminotransferase 27 U/L (0-31); Albumin Level 4.7 g/dL (3.5-5.0); Alkaline Phosphatase 44 U/L (39-117); Anion Gap 11 (12-20); Aspartate Amino Transferase 24 U/L (5-31); Bilirubin Total 0.3 mg/dL (0.0-1.0); Blood Urea Nitrogen 15 mg/dL (9-16); Calcium 9.7 mg/dL (8.4-10.2); Carbon Dioxide 28 mmol/L (22-29); Chloride 108 mmol/L (96-108); Cholesterol 167 mg/dL (<200); Estimated Glomerular Filt Rate > 60; Glucose Fasting 90 mg/dL (60-99); HDL Cholesterol 49 mg/dL (>40); LDL Cholesterol Calculated 104 mg/dL (<100); Potassium 4.2 mmol/L (3.3-5.1); Sodium 143 mmol/L (135-145); Total Protein 7.6 g/dL (6.5-8.0); Triglycerides 74 mg/dL (<150)
[2023-09-14 09:23] LABS: TSH reflex Free T4 1.85 uIU/mL (0.32-4.0); Vitamin D 25-OH Total 25.6 ng/mL (>30)
[2023-09-14 09:23] LABS: Appearance Urine Cloudy; Color Urine Yellow; Glucose Urine UA Negative (Negative); Leukocyte Esterase Urine Moderate (2+) (Negative); Nitrite Urine Negative (Negative); PH 6.5 (5.0-9.0); UMIC TRIGGER UACC YES; Urine Blood Negative (Negative); Urine Ketones Negative (Negative); Urine Protein Negative (Neg-Trace)
[2023-09-14 10:06] LABS: Bacteria Urine Trace (None Seen); Hyaline Casts Urine 0-2 /LPF (0-2); RBC Urine 0-2 /HPF (0-2); WBC Urine 0-5 /HPF (0-5)
== END 2023-09-14 07:33 | disposition home or self-care (01) ==
LOC: HO.LAB 07:32
PROVIDERS: PCP Internal Medicine; Visit Provider Internal Medicine
DX: I10 Essential (primary) hypertension (principal); E55.9 Vitamin D deficiency, unspecified; E78.00 Pure hypercholesterolemia, unspecified
CPT/HCPCS: 36415; 80053; 80061; 81001; 82306; 84443; 85025

== ENCOUNTER 2023-09-17 16:45 | Outpatient (AMB) | payer OTHER, SELFPAY ==
[2023-09-17 16:49] VITALS: BP 110/76; PULSE 76; O2SAT 98; BMI 27.7
--- NOTE | 2023-09-17 16:49 | A.OFFPC_ITS ---
Vital Signs 09/17/23 16:49 Height 5 ft 4 in Weight 161 lb 2 oz BMI 27.7 BP 110/76 Blood Pressure Location Lt brachial Position Sitting Pulse 76 Pulse Source Pulse Oximeter Pulse Oximetry (%) 98 Oxygen Delivery Method Room Air Intake Visit Reasons: Annual Exam Lead Shipper Required: No Accompanied by: Self / Same As Patient Allergies No Known Allergies Allergy (Verified 09/17/23 17:37) Medication List - Last Reconciled 09/17/23 by Juni Nickerson MD esomeprazole magnesium 20 mg PO DAILY 90 days fenofibrate 160 mg PO DAILY 90 days sertraline 50 mg PO DAILY 90 days Tobacco use date assessed: 09/17/23 Fall risk assessment: No Falls in past year Last assessed Fall Risk: 09/17/23 Dental Screening Dental Screen Date: 09/17/23 Did you have a dental visit in the last 12 months?: Yes Did you have a dental problem in the last 6 months where you did not have access to dental care?: No Was dental information given to patient?: Patient has dentist HPI Annual Exam HPI Details Patient comes in today for her annual physical examination States that she feels okay She denies any headaches or dizziness Denies any chest pains, no shortness of breath No nausea/vomiting, no abdominal pain No change in bowel habits noted Denies any acute urinary symptoms Her follow-up labs done a few days ago - to discuss results She is up-to-date with screening colonoscopy - had colonoscopy last done on 07/19/[address] 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 and pap smear in November 2023 [facility] Medical History Anxiety Lumbar back pain with radiculopathy affecting left lower extremity Overweight (BMI 25.0-29.9) Gastritis Mixed hyperlipidemia Other cyst of bone, left thigh Hx of hyperlipidemia Surgical History Hx of colonoscopy Hx of tonsillectomy Hx of hysterectomy Family History Father Lung cancer Mother History of breast cancer, Onset Age: 65 Hypertension Social History Housing: Condominium Alcohol intake: never Patient Tobacco Use Status: Never used Tobacco e-Cigarette/Vaping Use: Never Used Second Hand Smoke Exposure: No service: No Current occupational status: employed Cognitive needs: No Hearing needs: No Vision needs: Yes Female Reproductive History Menstrual Age of Menarche: 10 Questionnaire PHQ-9 Over the last 2 weeks, how often have you been bothered by any of the following problems? 1. Little interest or pleasure in doing things: not at all 2. Feeling down, depressed, or hopeless: not at all 3. Trouble falling or staying asleep, or sleeping too much: not at all 4. Feeling tired or having little energy: not at all 5. Poor appetite or overeating: not at all 6. Feeling bad about yourself - or that you are a failure or have let yourself or your family down: not at all 7. Trouble concentrating on things, such as reading the newspaper or watching television: not at all 8. Moving or speaking so slowly that other people could have noticed. Or the opposite - being so fidgety or restless that you have been moving around a lot more than usual: not at all 9. Thoughts that you would be better off or of hurting yourself in some way: not at all Total score: 0 Depression Screening Interpretation: Negative Depression Screening Done: Yes 66090 - PHQ-9 Billing: Yes Source: Developed by Drs. French Gomez, Rossana Tripp, Haja Carrillo and colleagues, with an educational marion from [employer]. Thrive Questionnaire Date Thrive assessed: 09/17/23 I am a: Patient What is your living situation today?: I have a steady place to live Within the past 12 months, did the food you bought not last and you didn't have the money to get more?: Never true Within the past 12 months, did you worry whether your food would run out before you got money to buy more?: Never true Do you have trouble paying for medicines?: No Do you have trouble getting transportation to medical appointments?: No Do you have trouble paying your heating and electricity bill?: No Do you have trouble taking care of your child, family member or friend?: No Do you have trouble with day-to-day activities such as bathing, preparing meals, shopping, managing finances, etc.?: No Are you currently unemployed and looking for a job?: No Are you interested in more education?: No Please select the resources that you would like help with: None Currently or been in a relationship where the following occur: no concerns reported AUDIT C Alcohol Use Questionnaire (AUDIT-C) 1. How often do you have a drink containing alcohol?: Never 3. How often do you have six or more drinks on one occasion?: Never Total Score: 0 Score Reviewed/Action Taken: Yes CRISTINA-7 AMB Questionnaire CRISTINA-7 Date CRISTINA - 7 assessed: 09/17/23 Feeling nervous, anxious, or on edge: 0 = Not at all Not being able to stop or control worryin = Not at all Worrying too much about different things: 0 = Not at all Trouble relaxin = Not at all Being so restless that it is hard to sit still: 0 = Not at all Becoming easily annoyed or irritable: 0 = Not at all Feeling afraid as if something awful might happen: 0 = Not at all Total CRISTINA-7 score (0-4 normal; 5-9 mild; 10-14 moderate; 15-21 severe): 0 Source: Developed by Drs. French Gomez, Rossana rTipp, Haja Carrillo and colleagues, with an educational marion from [employer]. CRISTINA-7 Assessment Billing CRISTINA-7 Assessment Tool: CRISTINA-7 Assessment 70909 Review of Systems Const Denies chills, Denies fatigue, Denies fever(s), Denies headache(s) and Denies malaise Eyes Denies blurry vision, Denies change in vision, Denies irritation and Denies itchy eyes ENT Denies dysphagia, Denies dizziness, Denies otalgia, Denies headache(s), Denies nasal congestion, Denies neck pain, Denies odynophagia, Denies sinus pain and Denies sore throat Card Denies chest pain, Denies rapid heart rate, Denies irregular heart rhythm, Denies palpitations and Denies dyspnea Resp Denies chest congestion, Denies cough, Denies dyspnea and Denies wheezing GI Denies abdominal pain, Denies bloating, Denies constipation, Denies dysphagia, Denies heartburn, Denies diarrhea, Denies nausea, Denies odynophagia and Denies vomiting Denies hematuria, Denies urinary frequency, Denies dysuria, Denies urinary incontinence and Denies urinary urgency Musc Denies back pain, Denies arthralgias, Denies joint swelling, Denies muscle weakness and Denies neck pain Skin/Breast Denies breast pain, Denies breast mass, Denies change in pigmentation, Denies lesions, Denies rash and Denies unusual bruising Neuro Denies dizziness, Denies headache(s) and Denies paresthesias Psych Denies anxiety and Denies depression Endo Denies fatigue and Denies palpitations Vincent/Lymph Details: (+) varicosities on both lower extremities Denies easy bruising Aller/Immun Denies itchy eyes and Denies wheezing Physical exam (Primary Care) Vital Signs: Last Vital Signs Pulse 76 09/17/23 16:49 BP 110/76 09/17/23 16:49 Pulse Ox 98 09/17/23 16:49 Oxygen Delivery Method Room Air 09/17/23 16:49 BMI result Body Mass Index 27.7 Tobacco/Smoking Status: Tobacco use Status Tobacco use date assessed 09/17/23 09/17/23 16:50 Patient Tobacco Use Status Never used Tobacco 09/17/23 16:50 e-Cigarette/Vaping Use Never Used 09/17/23 16:50 PHQ-9: PHQ-9 Score PHQ-9: Total score 0 09/17/23 18:58 Depression Screening Interpretation: Negative Thrive Assessment: Date of Thrive Assessment Date Thrive assessed 09/17/23 09/17/23 16:50 Currently or been in a relationship where the following occur: no concerns reported Const General: no acute distress, alert and awake Orientation/consciousness: patient oriented x3 HENMT Head: Yes normocephalic and Yes atraumatic Ears: external ears normal, TM's normal bilaterally and EAC's normal General nose exam: No nasal discharge present Face and sinus: Yes normal facial exam and Yes sinuses nontender Teeth and gingiva: dentition normal Throat: Yes posterior oropharynx normal and Yes tonsils normal (no TP congestion) Eyes Eyelids: Yes eyelids normal Conjunctivae: conjunctivae normal Pupils: Equal, round and reactive pupils present EOM: EOMs intact bilaterally Neck Neck: Yes no lymphadenopathy and Yes supple Thyroid: Thyroid normal Resp Auscultation: clear to auscultation bilaterally, no rales and no wheezes Cardio Rate: regular rate Rhythm: regular rhythm Heart sounds: no murmurs GI Palpation (GI): Soft to palpation, nontender and No hepatosplenomegaly present Auscultation: normal bowel sounds General: Yes no CVA tenderness Back/Spine/Pelvis Back: no CVA tenderness Thoracic/Lumbar Spine: thoracic and lumbar spine normal to inspection Skin Lesions: no lesions Rashes: no rashes Neuro General: patient oriented x3, moves all extremities, no focal motor deficits and CN's II-XI intact bilaterally Cranial nerves: Yes Equal, round and reactive pupils present Cognition (Neuro): normal cognition Gait exam (Neuro): Normal gait present Extrem Other: (+) varicosities over both lower extremities General: Yes no clubbing, cyanosis or edema Results Reviewed Results Reviewed: Laboratory Tests 09/14/23 09/14/23 09/14/23 07:47 07:47 08:40 WBC 4.4 L Hgb 12.0 Hct 38.1 Plt Count 298 Sodium 143 Potassium 4.2 Creatinine 0.79 Estimated GFR > 60 Fasting Glucose 90 Calcium 9.7 AST 24 ALT 27 Triglycerides 74 Cholesterol 167 LDL Cholesterol, Calc 104 H HDL Cholesterol 49 25-OH Vitamin D Total 25.6 L TSH 1.85 Ur Specific Cisco 1.020 Urine Protein Negative Urine Glucose (UA) Negative Urine Blood Negative Urine Nitrite Negative Ur Leukocyte Esterase Moderate (2+) H Assessment and Plan Assessment & Plan (1) Annual physical exam: Code(s): Z00.00 - Encounter for general adult medical examination without abnormal findings Plan: Results of her labs done a few days ago reviewed and discussed with patient She is up-to-date with all of her cancer screenings Will be due for repeat colonoscopy in 2024; is scheduled for her next mammogram in March 2024 and to see gynecology for her annual exam and pap smear in November 2023 (2) Mixed hyperlipidemia: Code(s): E78.2 - Mixed hyperlipidemia Plan: Reinforced low cholesterol diet Continue Fenofibrate 160 mg QD Will recheck her labs and fasting lipids in 6 months for follow-up (3) Gastritis: Code(s): K29.70 - Gastritis, unspecified, without bleeding Qualifiers: Chronicity: chronic Gastritis bleeding: without bleeding Gastritis type: unspecified gastritis Qualified Code(s): K29.50 - Unspecified chronic gastritis without bleeding Plan: Dietary restrictions reinforced Continue Esomeprazole 20 mg QD (4) Varicose veins of right lower extremity with pain: Code(s): I83.811 - Varicose veins of right lower extremity with pain Plan: S/P microphlebectomy of the right leg back in April 2023 with (+) significant relief of her leg symptoms Follow up with vascular surgery (Dr. Zuniga) as scheduled (5) Anxiety: Code(s): F41.9 - Anxiety disorder, unspecified Plan: States that she is still doing well on her current Rx Continue Sertraline 50 mg QD (6) Overweight (BMI 25.0-29.9): Code(s): E66.3 - Overweight Plan: Reinforced diet/exercise as tolerated/lose weight Plan Follow up in 6 months Orders: Orders Complete Blood Count Auto Diff 6 Months D64.9 - Anemia, unspecified Lipid Panel 6 Months E78.00 - Pure hypercholesterolemia, unspecified TSH reflex Free T4 6 Months E78.00 - Pure hypercholesterolemia, unspecified Vitamin D 25-OH Total 6 Months E55.9 - Vitamin D deficiency, unspecified Comprehensive [place]. Panel Fast 6 Months E78.00 - Pure hypercholesterolemia, unspecified UA CC w/rflx Micro + Cult 6 Months R30.0 - Dysuria Coding Level of Care Code Est Pt Prev Care 40-64y(83426) Diagnoses Annual physical exam Z00.00 Mixed hyperlipidemia E78.2 Chronic gastritis without bleeding, unspecified gastritis type K29.50 Chronicity: chronic Gastritis bleeding: without bleeding Gastritis type: unspecified gastritis Varicose veins of right lower extremity with pain I83.811 Anxiety F41.9 Overweight (BMI 25.0-29.9) E66.3 Additional Codes CRISTINA-7 Assessment Billing - CRISTINA-7 Assessment Tool: CRISTINA-7 Assessment 84365 ([id number])
== END 2023-09-17 17:48 | disposition home or self-care (01) ==
PROVIDERS: PCP Internal Medicine; Visit Provider Internal Medicine
DX: Z00.00 Encounter for general adult medical examination without abnormal findings (principal); E78.2 Mixed hyperlipidemia; K29.50 Unspecified chronic gastritis without bleeding; I83.811 Varicose veins of right lower extremity with pain; F41.9 Anxiety disorder, unspecified; E66.3 Overweight
CPT/HCPCS: 99396

== ENCOUNTER 2023-09-28 12:32 | Outpatient (AMB) | payer OTHER, SELFPAY ==
--- NOTE | 2023-09-28 13:01 | AM.OFFWIN_ITS ---
Intake Vital Signs 09/28/23 13:03 Weight 164 lb BP 130/82 Blood Pressure Location Lt brachial Position Sitting Pulse 66 Pulse Source Pulse Oximeter Pulse Oximetry (%) 99 Oxygen Delivery Method Room Air Intake Visit Reasons: EP LT ankle pain due to fall Intake Note: Patient here for for twisted ankle that happened last week but it has become very swollen and painful. Patient Tobacco Use Status: Never used Tobacco Allergies No Known Allergies Allergy (Verified 09/28/23 13:04) Do you need a note to return to daycare/school/sports/work: No HPI HPI Comments History of Present Illness Details This is a 63-year-old female presenting for evaluation of pain in her left foot and ankle. Patient states that her brother was visiting last week and on approximately she was walking out of a store when she twisted her left ankle. Patient did not fall to the ground and there was no associated head injury. Patient states that she did not have significant pain at that time however after the past 2 days she has developed an aching pain in her lateral left ankle and lateral left foot. Patient has been taking Advil only without complete relief of her discomfort. FOR[facility]LY [facility] Medical History (Updated 09/28/23 @ 14:04 by Marie Subramanian PA-C) Ankle pain, left Anxiety Lumbar back pain with radiculopathy affecting left lower extremity Overweight (BMI 25.0-29.9) Gastritis Mixed hyperlipidemia Other cyst of bone, left thigh Hx of hyperlipidemia Surgical History Hx of colonoscopy Hx of tonsillectomy Hx of hysterectomy Family History Father Lung cancer Mother History of breast cancer, Onset Age: 65 Hypertension Social History Housing: Condominium Alcohol intake: never Patient Tobacco Use Status: Never used Tobacco e-Cigarette/Vaping Use: Never Used Second Hand Smoke Exposure: No service: No Current occupational status: employed Cognitive needs: No Hearing needs: No Vision needs: Yes Female Reproductive History Menstrual Age of Menarche: 10 Review of Systems Const All systems reviewed & are unremarkable except as noted in HPI and below Reports as per HPI Musc Reports no additional complaints, Reports arthralgias (left ankle) and Reports joint swelling (left ankle) Skin/Breast Reports system reviewed and no additional complaints, except as documented Psych Reports no additional complaints Physical Exam Vital Signs: Last Vital Signs Pulse 66 09/28/23 13:03 BP 130/82 09/28/23 13:03 Pulse Ox 99 09/28/23 13:03 Oxygen Delivery Method Room Air 09/28/23 13:03 Const Other: Patient ambulating independently without ataxia. General: cooperative, healthy appearing, comfortable, no acute distress, alert and awake Nutritional Appearance: average body habitus Orientation/consciousness: patient oriented x3 Limitations: no limitations (ambulating independently) Skin General skin exam: no rashes or lesions noted (no ecchymosis, abrasions, erythema or warmth to touch upon examination) Lesions: no lesions Wounds: no wounds Neuro General: patient oriented x3 Extrem Other: mild edema left lateral ankle overlying lateral malleolus and left lateral calcaneus General: Yes no pedal edema, Yes no calf tenderness and No pedal edema Left lower extremity: full ROM (passive ROM left ankle intact), normal capillary refill and edema (lateral left ankle) Psych Appearance: grossly normal Mental Status: mental status grossly normal Insight: Good insight present (Psych) Judgement: Good judgement present (Psych) Assessment & Plan Assessment & Plan (1) Left ankle sprain: Comment: No overt fx. noted on imaging; final report to follow. Code(s): S93.402A - Sprain of unspecified ligament of left ankle, initial encounter Qualifiers: Encounter type: initial encounter Involved ligament of ankle: unspecified ligament Qualified Code(s): S93.402A - Sprain of unspecified ligament of left ankle, initial encounter Plan: Air cast with lace-up shoe; ibuprofen or Aleve OTC as needed for discomfort. Orders: Orders XR foot LT 2V 09/28/23 M25.572 - Pain in left ankle and joints of left foot Coding Level of Care Code Est Pt Level 3 (12457) Diagnoses Sprain of left ankle, unspecified ligament, initial encounter S93.402A Encounter type: initial encounter Involved ligament of ankle: unspecified ligament Time Spent (min) 30
[2023-09-28 13:03] VITALS: BP 130/82; PULSE 66; O2SAT 99
== END 2023-09-28 14:02 | disposition home or self-care (01) ==
PROVIDERS: PCP Internal Medicine; Visit Provider Physician Assistant
DX: S93.402A Sprain of unspecified ligament of left ankle, initial encounter (principal)
CPT/HCPCS: 99213

== ENCOUNTER 2023-09-28 13:33 | Outpatient (REF) | payer OTHER, SELFPAY ==
--- NOTE | ~2023-09-28 | XR_ITS ---
EXAMINATION: LEFT ANKLE, LEFT FOOT CLINICAL INFORMATION: Pain in left ankle and foot COMPARISON: None available. TECHNIQUE: Repeat views left ankle, 3 views left foot FINDINGS: There is moderate soft tissue swelling bilaterally more marked laterally. The ankle mortise appears stable. No ankle joint effusion is seen. Of note, there is an avulsion fracture arising from the talus dorsally and laterally (see martines image). No other fractures are seen. The foot is otherwise unremarkable. XR/XR foot LT 2V IMPRESSION: Avulsion fracture arising from the talus dorsally and laterally.
--- NOTE | ~2023-09-28 | XR_ITS ---
EXAMINATION: LEFT ANKLE, LEFT FOOT CLINICAL INFORMATION: Pain in left ankle and foot COMPARISON: None available. TECHNIQUE: Repeat views left ankle, 3 views left foot FINDINGS: There is moderate soft tissue swelling bilaterally more marked laterally. The ankle mortise appears stable. No ankle joint effusion is seen. Of note, there is an avulsion fracture arising from the talus dorsally and laterally (see martines image). No other fractures are seen. The foot is otherwise unremarkable. XR/XR ankle LT 2V IMPRESSION: Avulsion fracture arising from the talus dorsally and laterally.
== END 2023-09-28 13:34 | disposition home or self-care (01) ==
LOC: HO.HMGCX 13:33
PROVIDERS: PCP Internal Medicine; Visit Provider Physician Assistant
DX: M25.572 Pain in left ankle and joints of left foot (principal)
CPT/HCPCS: 73600; 73620

== ENCOUNTER 2023-10-08 08:21 | Outpatient (AMB) | payer OTHER, SELFPAY ==
--- NOTE | 2023-10-08 08:29 | MHC.OFFVIS ---
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 Patient reports that on 09/20/23 she was wearing a small wedged shoe when she rolled the ankle while walking out of the store. The ankle rolled out under her. She was seen on 09/28/23 in the walk in clinic where the she was place in a stirrup air cast. She explains that she is having continue pain and swelling of the ankle, has occasional tingling of the foot. 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 She was seen at walk-in clinic on 09/28/23 where she was placed in a stirrup air cast. She currently states she has pain and swelling in her ankle. She also c/o occasional tingling of the foot. She takes occasional Advil for her pain. She works at [employer]. [facility] Medical History (Updated 10/08/23 @ 09:01 by Aby Cates PA-C) Ankle pain, left Anxiety Lumbar back pain with radiculopathy affecting left lower extremity Overweight (BMI 25.0-29.9) Gastritis Mixed hyperlipidemia Other cyst of bone, left thigh Hx of hyperlipidemia Surgical History Hx of colonoscopy Hx of tonsillectomy Hx of hysterectomy Family History Father Lung cancer Mother History of breast cancer, Onset Age: 65 Hypertension Social History Housing: Condominium Alcohol intake: never Patient Tobacco Use Status: Never used Tobacco e-Cigarette/Vaping Use: Never Used Second Hand Smoke Exposure: No service: No Current occupational status: employed Cognitive needs: No Hearing needs: No Vision needs: Yes Female Reproductive History Menstrual Age of Menarche: 10 Review of Systems Const All systems reviewed & are unremarkable except as noted in HPI and below Physical Exam Vital Signs: BMI result Body Mass Index 27.6 Const General: cooperative and no acute distress Orientation/consciousness: patient oriented x3 Resp Effort & Inspection: normal respiratory effort and able to speak in complete sentences Cardio Peripheral pulses: Peripheral pulses 2+ throughout Neuro General: patient oriented x3 Extrem Other: Left foot: Normal to inspection. She has mild swelling over the lateral aspect of the foot into the ankle with tenderness along the lateral side of the talus. No pain over medial malleolus or posterior malleolus. No pain along the Achilles tendon. She has no pain over the base of 5th metatarsal. EHL intact. NVI. Office Procedures Fracture Care Fracture Billing Code: Fracture Billing Code Results Reviewed Results Reviewed: X-rays of the left foot obtained at urgent care are significant for an avulsion fracture over the lateral aspect of the talus. Assessment & Plan Assessment & Plan (1) Left ankle sprain: Comment: No overt fx. noted on imaging; final report to follow. Code(s): S93.402A - Sprain of unspecified ligament of left ankle, initial encounter Qualifiers: Encounter type: initial encounter Involved ligament of ankle: unspecified ligament Qualified Code(s): S93.402A - Sprain of unspecified ligament of left ankle, initial encounter (2) Avulsion fracture of ankle: Code(s): S82.899A - Other fracture of unspecified lower leg, initial encounter for closed fracture Qualifiers: Encounter type: initial encounter Fracture type: closed Laterality: left Qualified Code(s): S82.892A - Other fracture of left lower leg, initial encounter for closed fracture Plan She was fit for a short boot which weight bear as tolerated for the next 2 weeks to allow for immobilization and resting. She can remove the boot for hygiene and resting. I encouraged her to take ibuprofen three times a day to help with her swelling along with icing. She will begin a course of physical therapy to work on ROM, gentle strengthening and proprioceptive training. She will ween out of the boot into a regular street shoe as symptoms allow. If symptoms persist or worsens, patient will contact the office, otherwise follow-up as needed. Orders: Orders PT Evaluation and Treatment Today S82.899A - Other fracture of unspecified lower leg, initial encounter for closed fracture, S93.402A - Sprain of unspecified ligament of left ankle, initial encounter Patient Instructions: Scribed for Aby Cates PA-C, by Michael Hidalgo medical research tech, on 10/08/2023 at 8:30 AM EST. IAby PA-C, have personally reviewed and agree with the information entered by the scribe. Coding Level of Care Code New Pt Level 3 (85287) Diagnoses Sprain of left ankle, unspecified ligament, initial encounter S93.402A Encounter type: initial encounter Involved ligament of ankle: unspecified ligament Closed avulsion fracture of left ankle, initial encounter S82.892A Encounter type: initial encounter Fracture type: closed Laterality: left CPT Codes Fracture Care - Fracture Billing Code: Fracture Billing Code ([id number])
[2023-10-08 08:35] VITALS: BMI 27.6
== END 2023-10-08 08:51 | disposition home or self-care (01) ==
PROVIDERS: PCP Internal Medicine; Visit Provider Physician Assistant
DX: S93.402A Sprain of unspecified ligament of left ankle, initial encounter (principal); S82.892A Other fracture of left lower leg, initial encounter for closed fracture
CPT/HCPCS: 99203

== ENCOUNTER 2023-10-08 09:17 | Outpatient (REF) | payer OTHER, SELFPAY | END 2023-10-08 09:18 | disposition home or self-care (01) | LOC: HO.HOSX 09:17 | PROVIDERS: Visit Provider Physician Assistant | DX: Z13.89 Encounter for screening for other disorder (principal) ==

== ENCOUNTER 2023-11-10 13:50 | Outpatient (AMB) | payer OTHER, SELFPAY ==
[2023-11-10 14:05] VITALS: BP 118/76; BMI 27.8
--- NOTE | 2023-11-10 14:05 | MHC.OFFVIS ---
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 She is doing well with no concerns. Attempting to eat a healthy diet (cutting down on carbs) with calcium and vitamin D, and stays active with exercise at times. Currently not sexually active. Denies any vaginal dryness or irritation. Last mammogram; 2022. Hx. of hystrectomy due to fibroids/HMB. Colonoscopy is UTD. Denies any family history of ovarian or colon cancer. FH of breast cancer-mother. [facility] Medical History Ankle pain, left Anxiety Lumbar back pain with radiculopathy affecting left lower extremity Overweight (BMI 25.0-29.9) Gastritis Mixed hyperlipidemia Other cyst of bone, left thigh Hx of hyperlipidemia Surgical History Hx of colonoscopy Hx of tonsillectomy Hx of hysterectomy Family History Father Lung cancer Mother History of breast cancer, Onset Age: 65 Hypertension Social History Housing: Condominium Alcohol intake: never Patient Tobacco Use Status: Never used Tobacco e-Cigarette/Vaping Use: Never Used Second Hand Smoke Exposure: No service: No Current occupational status: employed Cognitive needs: No Hearing needs: No Vision needs: Yes Female Reproductive History Menstrual Age of Menarche: 10 Review of Systems Const All systems reviewed & are unremarkable except as noted in HPI and below Reports as per HPI Eyes Reports no additional complaints ENT Reports no additional complaints Card Reports no additional complaints Resp Reports no additional complaints GI Reports as per HPI and Reports no additional complaints Reports as per HPI Musc Reports no additional complaints Skin/Breast Reports as per HPI Neuro Reports no additional complaints Psych Reports no additional complaints Endo Reports no additional complaints Vincent/Lymph Reports no additional complaints Aller/Immun Reports no additional complaints Physical Exam Vital Signs: Last Vital Signs BP 118/76 11/10/23 14:05 BMI result Body Mass Index 27.8 Const General: cooperative, healthy appearing, no acute distress, well developed and alert Orientation/consciousness: patient oriented x3 HEENT Head: Yes normal to inspection Eyes General: appearance normal, both eyes and all related structures Neck Neck: Yes normal visual inspection Thyroid: Thyroid normal Chest Chest palpation & inspection: normal inspection of the chest and other (no puckering, dimpling, peau de orange, retraction, discharge, masses) Breast/axilla inspection: normal inspection of the breasts Breast/axilla palpation: normal palpation of the breasts Resp Effort & Inspection: normal respiratory effort GI Inspection: Yes normal to inspection Palpation (GI): Soft to palpation Rectal Exam - Female: deferred General: Yes bladder normal to palpation External Female Exam: normal external appearance and normal appearance of the urethra Speculum Exam - Vagina: normal appearance of the vagina, normal palpation, normal vaginal discharge, vagina atrophic and other (vag cuff no lesions or nodules) Speculum Exam - Cervix: normal appearance of the cervix and Cervix absent Bimanual exam- vagina & uterus: normal bimanual exam, normal palpation, bladder normal to palpation and uterus absent Bimanual Exam- Adnexa, other: no masses Skin General skin exam: no rashes or lesions noted Rashes: no rashes Neuro General: patient oriented x3 Cognition (Neuro): normal cognition Extrem General: Yes normal to inspection Psych Attitude: cooperative Thought process: Normal thought process present Assessment & Plan Assessment & Plan (1) Encounter for well woman exam with routine gynecological exam: Code(s): Z01.419 - Encounter for gynecological examination (general) (routine) without abnormal findings Plan Discussed: Current recommendations for pap smears per ASCCP guidelines. Breast awareness, periodic self breast exams and yearly mammogram. Maintain a healthy lifestyle, well balanced diet including Calcium 1,200 mg and Vitamin D 600 IU daily, and routine exercise. Patient verbalizes understanding and agrees to the plan of care. She was given opportunity to ask questions and all questions were answered to the best of my ability. RTO in 1 year for annual ornamenter hand exam. This note is constructed using voice recognition software. While every effort has been made to ensure accuracy, public health professor errors may have been included. Coding Level of Care Code Est Pt Prev Care 40-64y(52895) Diagnoses Encounter for well woman exam with routine gynecological exam Z01.419
== END 2023-11-10 14:34 | disposition home or self-care (01) ==
LOC: HO.HWS 13:52
PROVIDERS: PCP Internal Medicine; Visit Provider Advanced Practice Midwife
DX: Z01.419 Encounter for gynecological examination (general) (routine) without abnormal findings (principal)
CPT/HCPCS: 99396

== ENCOUNTER → 2023-11-10 13:50 | Outpatient (BNVA) | payer OTHER, SELFPAY | PROVIDERS: PCP Internal Medicine; Visit Provider Advanced Practice Midwife ==

== ENCOUNTER 2023-11-15 10:00 | Outpatient (RCR) | payer OTHER, SELFPAY ==
--- NOTE | 2023-10-28 11:52 | MHC.PT.EP ---
[facility] [place] Office [place] Office [place] Office [address] Kerline Boland [address] [phone] F: [phone] F: [phone] F: [phone] F: [phone] Physical Therapy Plan of Care Date of Evaluation: 10/28/23 Date of Surgery: NA Diagnosis: Sprain of unspecified ligament of L ankle Other fracture of unspecified lower leg, initial encounter for closed fracture Assessment: Maria Elena is a 63 year old female who is referred to PT for Sprain of unspecified ligament of L ankle, Other fracture of unspecified lower leg, initial encounter for closed fracture . She is 5.5 weeks since the injury. She sustained the injury secondary to twisting her ankle in store. She had immediate onset of pain however went to urgent care a week later. She was diagnosed with ankle sprain and fracture and was referred to ortho. Her ankle was immobilized in a walking boot. She presented to PT today without any boot. On PT examination she presented with mild TTP over L cuboid and cuneiform bones, 4/10 pain with walking with boot, standing, getting down the stairs and standing, decreased ankle ROM, decreased strength and impaired balance. She lives alone and is independent with all ADLS. 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 She would benefit from skilled PT to address the aforementioned impairments and improve tolerance to functional activities. Frequency and Duration: The patient will be seen 2/week for 4 weeks Short Term Goals: 1. Pt will present with all ankle ROM WNL which will enable her to negotiate stairs without pain in 2 weeks. Jail Goals: 1. Pt will demonstrate an increase in muscle strength by 1 grade which will enable to tolerate walking in boots, sitting and standing without pain in 4 weeks. 2. Pt will be independent with all HEP and return to PLOF in 4 weeks. Treatment Plan: Modalities to reduce pain, spasms and effusion. Manual therapy to restore motion and function. Therapeutic exercise to improve strength and flexibility. Neuromuscular re-education for posture and balance. Therapeutic activities to return to functional activities of daily living. Electronically signed by: Xochilt Milligan PT DPT Please sign and return to therapist. Thank you for your referral.
--- NOTE | 2023-11-25 11:04 | MHC.PT.DC ---
[facility] [place] Office [place] Office [place] Office [address] Boland [address] [phone] F: [phone] F: [phone] F: [phone] F: [phone] Physical Therapy Discharge Report Diagnosis: Sprain of unspecified ligament of L ankle Other fracture of unspecified lower leg, initial encounter for closed fracture Date of Surgery: NA Date of Evaluation: 10/28/23 Date of Discharge: 11/25/23 Treatments to Date: 6 Cancellations to Date: 2 No Shows to Date: 0 Discharge Status: Achieved Goals Improved Function Independent with HEP Discharge Summary: Maria Elena completed 6 PT visits and has achieved all goals set for her. She is therefore being d/c from PT. [employer]queria was in agreement with the plan. Electronically signed by: Xochilt Milligan, PT DPT Please sign and return to therapist. Thank you for your referral.
== END 2023-11-25 11:04 | disposition home or self-care (01) ==
LOC: HO.PT 10:00
PROVIDERS: PCP Internal Medicine; Visit Provider Physician Assistant
DX: S93.402A Sprain of unspecified ligament of left ankle, initial encounter (principal)
CPT/HCPCS: 97110; 97161; 97530

== ENCOUNTER 2024-02-03 11:25 | Outpatient (AMB) | payer OTHER, SELFPAY ==
--- NOTE | 2024-02-03 11:51 | MHC.OFFVIS ---
Vital Signs 02/03/24 11:51 Height 5 ft 4 in Intake Visit Reasons: Newprob-Pain left/left index finger Intake Note: Maria Elena is a 63 year old right hand dominant female who presents today for a evaluation of her left pointer finger. Patient reports ongoing pain for a couple of months and she is noticing that it is getting worse. She expresses that she noticed that on her DIP joint was getting red and inflamed. Patient is unable to bend too much with her index finger. Denies numbness and tingling. Allergies No Known Allergies Allergy (Verified 02/03/24 11:54) Medication List - Last Reconciled 02/03/24 by Lilly Bailey MD esomeprazole magnesium 20 mg PO DAILY 90 days fenofibrate 160 mg PO DAILY 90 days ibuprofen 800 mg PO Q8H sertraline 50 mg PO DAILY 90 days HPI Comments Details: [employer] employee. Notice that left 2nd digit DIP is bent, for the last month. Denies any inciting injuries or falls. Two days ago, noted swelling and redness on this DIP joint. Denies numbness. Denies weakness. Treatment done so far: NSAIDs as needed only Denies family history of RA or lupus. She had a fall last year and followed with orthopedics for ankle. [facility] Medical History (Updated 02/03/24 @ 13:59 by Lilly Bailey MD) Osteoarthritis, hand Ankle pain, left Anxiety Lumbar back pain with radiculopathy affecting left lower extremity Overweight (BMI 25.0-29.9) Gastritis Mixed hyperlipidemia Other cyst of bone, left thigh Hx of hyperlipidemia Surgical History Hx of colonoscopy Hx of tonsillectomy Hx of hysterectomy Family History Father Lung cancer Mother History of breast cancer, Onset Age: 65 Hypertension Social History (Updated 02/03/24 @ 11:54 by Franc Bauer) Housing: Condominium Alcohol intake: never Patient Tobacco Use Status: Never used Tobacco e-Cigarette/Vaping Use: Never Used Second Hand Smoke Exposure: No service: No Current occupational status: employed 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 MSK: Inspection reveals appropriate head and neck positioning. Left 2nd DIP joint shows swan-neck deformity and Heberden node. It is red and swollen. Right 4th and 5th DIP joints also showed Heberden nodes, but without signs of acute inflammation. No intrinsic hand weakness noted. No atrophy noted. Miles test negative. Carpal compression test negative. Tinel sign negative. Strength is 5/5 in all muscle groups tested. No increased tone noted. Neurological: Neurologic examination of the upper and lower extremities was nonfocal with intact sensation, muscle stretch reflexes and without focal motor deficits . Mills?s negative bilaterally. Gait is non-antalgic without loss of balance. Results Reviewed Results Reviewed: I independently reviewed the results of the following: Hand x-ray done 10/09/2022 showed arthritic changes in the IP joints. I reviewed records from the following: Orthopedics Assessment & Plan Assessment & Plan (1) Osteoarthritis, hand: Code(s): M19.049 - Primary osteoarthritis, unspecified hand Category: Medical Qualifiers: Osteoarthritis type: primary Laterality: bilateral Qualified Code(s): M19.041 - Primary osteoarthritis, right hand; M19.042 - Primary osteoarthritis, left hand Plan Suspect this changes are from osteoarthritis, albeit with acute inflammation on left DIP joint. Repeat hand x-ray today. Start ibuprofen 800 mg t.i.d. for 7 days. Discussed side effects and precautions. Take with full stomach. We will put on a finger splint to protect the left 2nd digit. Assessment and plan discussed with patient, and patient was agreeable. All questions were answered thoroughly. Lilly Bailey MD, ANNMARIE Board Certified, [place] Board of Physical Medicine and Rehabilitation (ABPMR) Board Certified, [place] Board of Electrodiagnostic Medicine (ABEM) Medications: New ibuprofen 800mg every 8 hours for 7 days, with full stomach 800 mg PO Q8H 21 tabs 1RF Coding Level of Care Code New Pt Level 4 (29917) Diagnoses Primary osteoarthritis of both hands M19.041; M19.042 Osteoarthritis type: primary Laterality: bilateral
== END 2024-02-03 12:40 | disposition home or self-care (01) ==
LOC: HO.HOS 11:25
PROVIDERS: PCP Internal Medicine; Visit Provider Physical Medicine & Rehabilitation
DX: M19.041 Primary osteoarthritis, right hand (principal); M19.042 Primary osteoarthritis, left hand
CPT/HCPCS: 99204

== ENCOUNTER 2024-02-03 11:25 | Outpatient (REF) | payer OTHER, SELFPAY ==
--- NOTE | ~2024-02-03 | XR_ITS ---
EXAMINATION: XR HAND, LEFT CLINICAL INFORMATION: Left hand pain second digit COMPARISON: None available. TECHNIQUE: PA, lateral, and oblique views of the left hand. FINDINGS: The bones are diffusely demineralized. Mild degenerative changes in the first carpometacarpal joint. Mild osteoarthritic changes in the DIP joints. No displaced fracture of the second digit appreciated. XR/XR hand LT min 3V IMPRESSION: 1. Mild degenerative changes. No displaced fracture of the second digit appreciated. 2. Recommend follow-up imaging in 10-14 days if fracture is suspected.
== END 2024-02-03 11:26 | disposition home or self-care (01) ==
LOC: HO.HOSX 11:25
PROVIDERS: PCP Internal Medicine; Visit Provider Physical Medicine & Rehabilitation
DX: M24.142 Other articular cartilage disorders, left hand (principal)
CPT/HCPCS: 73130

== ENCOUNTER 2024-03-16 10:52 | Outpatient (REF) | payer OTHER, SELFPAY | END 2024-03-16 10:53 | disposition home or self-care (01) | LOC: HO.MAMMO 10:52 | PROVIDERS: Visit Provider Internal Medicine | DX: Z12.31 Encounter for screening mammogram for malignant neoplasm of breast (principal) | CPT/HCPCS: 77063; 77067 ==

== ENCOUNTER → 2024-03-16 11:15 | Outpatient (BNV) | payer OTHER, SELFPAY | PROVIDERS: Visit Provider Radiology Diagnostic Radiology | DX: Z12.31 Encounter for screening mammogram for malignant neoplasm of breast (principal) | CPT/HCPCS: 77063; 77067 ==

== ENCOUNTER 2024-03-22 11:10 | Outpatient (AMB) | payer OTHER, SELFPAY ==
--- NOTE | 2024-03-22 11:11 | MHC.OFFVIS ---
Vital Signs 03/22/24 11:13 Height 5 ft 4 in Weight 1632 lb BMI 280.1 Intake Visit Reasons: O/V B/L hand O.A Intake Note: Maria Elena is a 63 year old right hand dominant female who presents to the office today for a follow up B/L hand O.A. Pt states that she is doing well since her last visit, her pain has improved. she has been wearing her splint as directed, however forgot it today. Allergies No Known Allergies Allergy (Verified 03/22/24 11:14) Medication List - Last Reconciled 03/22/24 by Lilly Bailey MD esomeprazole magnesium 20 mg PO DAILY 90 days fenofibrate 160 mg PO DAILY 90 days ibuprofen 800 mg PO Q8H sertraline 50 mg PO DAILY 90 days HPI Comments Details: [employer] employee. Notice that left 2nd digit DIP is bent, for the last month. Denies any inciting injuries or falls. Two days ago, noted swelling and redness on this DIP joint. Denies numbness. Denies weakness. Denies family history of RA or lupus. She had a fall last year and followed with orthopedics for ankle. Patient denies any pain. Points to left index finger as being flex at the tip. No swelling, redness, warmth. No recent falls. Denies numbness. [facility] Medical History (Updated 02/03/24 @ 13:59 by Lilly Bailey MD) Osteoarthritis, hand Ankle pain, left Anxiety Lumbar back pain with radiculopathy affecting left lower extremity Overweight (BMI 25.0-29.9) Gastritis Mixed hyperlipidemia Other cyst of bone, left thigh Hx of hyperlipidemia Surgical History Hx of colonoscopy Hx of tonsillectomy Hx of hysterectomy Family History Father Lung cancer Mother History of breast cancer, Onset Age: 65 Hypertension Social History (Updated 02/03/24 @ 11:54 by Franc Bauer) Housing: Condominium Alcohol intake: never Patient Tobacco Use Status: Never used Tobacco e-Cigarette/Vaping Use: Never Used Second Hand Smoke Exposure: No service: No Current occupational status: employed 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 MSK: Inspection reveals appropriate head and neck positioning. Left 2nd DIP joint shows swan-neck deformity and Heberden node. Not red or swollen. Bony enlargement noted. Right 4th and 5th DIP joints also showed Heberden nodes, but without signs of acute inflammation. No intrinsic hand weakness noted. No atrophy noted. Miles test negative. Carpal compression test negative. Tinel sign negative. Strength is 5/5 in all muscle groups tested. No increased tone noted. Neurological: Neurologic examination of the upper and lower extremities was nonfocal with intact sensation, muscle stretch reflexes and without focal motor deficits . Mills?s negative bilaterally. Gait is non-antalgic without loss of balance. Results Reviewed Results Reviewed: Ordering Physician: Lilly Mclaughlin Date of Service: 02/03/24 Procedure(s): XR hand LT min 3V Accession Number(s): [id number] cc: Juni Nickerson MD; Lilly Mclaughlin~ EXAMINATION: XR HAND, LEFT CLINICAL INFORMATION: Left hand pain second digit COMPARISON: None available. TECHNIQUE: PA, lateral, and oblique views of the left hand. FINDINGS: The bones are diffusely demineralized. Mild degenerative changes in the first carpometacarpal joint. Mild osteoarthritic changes in the DIP joints. No displaced fracture of the second digit appreciated. XR/XR hand LT min 3V IMPRESSION: 1. Mild degenerative changes. No displaced fracture of the second digit appreciated. 2. Recommend follow-up imaging in 10-14 days if fracture is suspected. Assessment & Plan Assessment & Plan (1) Osteoarthritis, hand: Code(s): M19.049 - Primary osteoarthritis, unspecified hand Category: Medical Qualifiers: Osteoarthritis type: primary Laterality: bilateral Qualified Code(s): M19.041 - Primary osteoarthritis, right hand; M19.042 - Primary osteoarthritis, left hand Plan Denies any pain. Just bothered that the left 2nd digit DIP joint is slightly flexed. There is some bony enlargement without acute synovitis/inflammation. It is consistent with x-ray findings and we looked at the films together. Most likely osteoarthritis but will check NANDO and RF to rule out rheumatoid/inflammatory arthritis. We do not think it is fractured so we do not need further imaging at this time. Continue finger splint as needed, more for preventing further contracture. Assessment and plan discussed with patient, and patient was agreeable. All questions were answered thoroughly. Follow up as needed. Lilly Bailey MD, ANNMARIE Board Certified, [place] Board of Physical Medicine and Rehabilitation (ABPMR) Board Certified, [place] Board of Electrodiagnostic Medicine (ABEM) Orders: Orders Rheumatoid Factor Today M19.041 - Primary osteoarthritis, right hand, M19.042 - Primary osteoarthritis, left hand NANDO Reflex Titer and Pattern Today M19.041 - Primary osteoarthritis, right hand, M19.042 - Primary osteoarthritis, left hand Coding Level of Care Code Est Pt Level 3 (04494) Diagnoses Primary osteoarthritis of both hands M19.041; M19.042 Osteoarthritis type: primary Laterality: bilateral
[2024-03-22 11:13] VITALS: BMI 280.1
== END 2024-03-22 11:32 | disposition home or self-care (01) ==
PROVIDERS: PCP Internal Medicine; Visit Provider Physical Medicine & Rehabilitation
DX: M19.041 Primary osteoarthritis, right hand (principal); M19.042 Primary osteoarthritis, left hand
CPT/HCPCS: 99213

== ENCOUNTER → 2024-03-22 11:10 | Outpatient (BNVA) | payer OTHER, SELFPAY | PROVIDERS: PCP Internal Medicine; Visit Provider Physical Medicine & Rehabilitation ==

== ENCOUNTER 2024-03-22 11:34 | Outpatient (REF) | payer OTHER, SELFPAY ==
[2024-03-22 13:31] LABS: Rheumatoid Factor < 13.0 IU/mL (<15.0)
[2024-04-05 13:08] LABS: Anti Nuclear Antibody Screen POSITIVE (NEGATIVE)
[2024-04-05 13:13] LABS: Anti Nuclear Antibody Pattern Nuclear, Nucleolar
== END 2024-03-22 11:35 | disposition home or self-care (01) ==
LOC: HO.10HDL 11:34
PROVIDERS: Visit Provider Physical Medicine & Rehabilitation
DX: M19.041 Primary osteoarthritis, right hand (principal); M19.042 Primary osteoarthritis, left hand
CPT/HCPCS: 36415; 86038; 86039; 86431

== ENCOUNTER 2024-05-04 14:57 | Outpatient (AMB) | payer OTHER, SELFPAY ==
[2024-05-04 15:00] VITALS: BP 112/62; PULSE 69; O2SAT 97; BMI 27.4
--- NOTE | 2024-05-04 15:00 | A.OFFVIS_ITS ---
Vital Signs 05/04/24 15:00 Height 5 ft 4 in Weight 159 lb 13.362 oz BMI 27.4 BP 112/62 Blood Pressure Location Lt brachial Position Sitting Pulse 69 Pulse Source Pulse Oximeter Pulse Oximetry (%) 97 Oxygen Delivery Method Room Air Intake Visit Reasons: +NANDO Intake Note: Patient presents today with positive NANDO test results, patient is new here, and was referred by nursing project coordinator. Allergies No Known Allergies Allergy (Verified 05/04/24 15:02) Medication List - Last Reconciled 05/04/24 by Kristin Arreguin MD esomeprazole magnesium 20 mg PO DAILY 90 days fenofibrate 160 mg PO DAILY 90 days ibuprofen 800 mg PO Q8H sertraline 50 mg PO DAILY 90 days HPI Comments Details: This is a 26-year-old female who is referred for evaluation of a positive NANDO. She was evaluated by nursing project coordinator for bilateral hand arthritis. She was having a flexion deformity of her left index DIP. She was prescribed a ring splint. She wears it regularly. She denies any significant joint pain or swelling. Denies any skin rashes, denies any history of DVT/PE. Denies history of Raynaud's, shortness of breath or progressive heartburn. She had 3 pregnancies, 2 miscarriages and 1 child. She is unaware of any family history of an autoimmune rheumatic disease [facility] Medical History Osteoarthritis, hand Ankle pain, left Anxiety Lumbar back pain with radiculopathy affecting left lower extremity Overweight (BMI 25.0-29.9) Gastritis Mixed hyperlipidemia Other cyst of bone, left thigh Hx of hyperlipidemia Surgical History Hx of colonoscopy Hx of tonsillectomy Hx of hysterectomy Family History Father Lung cancer Mother History of breast cancer, Onset Age: 65 Hypertension Social History Housing: Condominium Alcohol intake: never Patient Tobacco Use Status: Never used Tobacco e-Cigarette/Vaping Use: Never Used Second Hand Smoke Exposure: No service: No Current occupational status: employed 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) Cognitive needs: No Hearing needs: No Vision needs: Yes Female Reproductive History Menstrual Age of Menarche: 10 Total pregnancies: 3 Number of Living Children: 1 Ab spontaneous: 2 Review of Systems Const Denies fever(s) and Denies weight loss GI Denies heartburn Musc Reports deformity and Denies joint swelling Skin/Breast Denies rash Physical Exam Vital Signs: Last Vital Signs Pulse 69 05/04/24 15:00 BP 112/62 05/04/24 15:00 Pulse Ox 97 05/04/24 15:00 Oxygen Delivery Method Room Air 05/04/24 15:00 BMI result Body Mass Index 27.4 Const General: cooperative, healthy appearing and comfortable Nutritional Appearance: overweight Orientation/consciousness: patient oriented x3 Limitations: no limitations HEENT Head: Yes normocephalic and Yes atraumatic Mouth: moist mucous membranes Resp Effort & Inspection: normal respiratory effort and able to speak in complete sentences Auscultation: clear to auscultation bilaterally Cardio Rate: regular rate Rhythm: regular rhythm Skin General skin exam: no rashes or lesions noted Neuro General: patient oriented x3 Extrem Other: Osteoarthritic changes of both hands with prominent Heberden's nodes, most prominent is the left 2nd DIP with a flexion deformity Normal nailfold capillaroscopy Normal range of motion of hands, wrists, elbows and shoulders without pain No knee pain with flexion-extension bilaterally No ankle swelling or tenderness bilaterally Assessment & Plan Assessment & Plan (1) Positive NANDO (antinuclear antibody): Code(s): R76.8 - Other specified abnormal immunological findings in serum Category: Medical Plan: This is a 63-year-old female who presents for evaluation of a positive NANDO in the context of flexion deformity of her left index Heberden's node. Upon evaluation I do not see any evidence of an autoimmune rheumatic disease. Clinical picture consistent with bilateral hand osteoarthritis. Discussed with patient that about 20% of the population can have a positive NANDO with no underlying autoimmune rheumatic disease. Follow-up as needed Plan I spent 20 minutes reviewing patient's chart, evaluating patient, counseling patient and documenting in the chart Coding Level of Care Code New Pt Level 3 (45612) Diagnoses Positive NANDO (antinuclear antibody) R76.8
== END 2024-05-04 15:25 | disposition home or self-care (01) ==
PROVIDERS: PCP Internal Medicine; Visit Provider Student in an Organized Health Care Education/Training Program
DX: R76.8 Other specified abnormal immunological findings in serum (principal)
CPT/HCPCS: 99203

== ENCOUNTER → 2024-05-04 14:57 | Outpatient (BNVA) | payer OTHER, SELFPAY | PROVIDERS: PCP Internal Medicine; Visit Provider Student in an Organized Health Care Education/Training Program ==

== ENCOUNTER 2024-10-02 07:23 | Outpatient (REF) | payer OTHER, SELFPAY ==
--- OUTSIDE RECORDS SUMMARY | 2024-10-02 07:26 | XMS_ITS | Continuity of Care Document ---
Author Organization [facility] Address [address] [place] [address] [address] [place] [address] Phone Care Team Providers Care Wood Pole Treater Name Role Phone Brandt ESCAMILLA, Maria Victoria Catalan Unavailable Unavailable Procedures Procedure Date Office/Oupt E&M New Pt 30 Mins Advance Directives Directive Yes / No Effective Date File Name No Information Encounters Encounter Description Practice Location Reason(s) For Visit Diagnoses Date Provider Providers Copied on Encounter [facility], [address] [place] [address] [address], [id number], tel:[phone] [facility] No Information 3 Brandt Catalan. [address] [place] [address], [place] [address], [place], [address], [place]. tel:[phone] Office/Oupt E&M New Pt 30 Mins [facility], [address] [place] [address] [address] [place], [id number], [place] tel:[phone] [facility] Cramp and spasm 3 Brandt Catalan. [address] [facility], [address], [address], [place]. tel:[phone] Referring Provider: Maria Victoria ESCAMILLA, [address] [place] [address], [address]. tel:[phone] Family History Family Member Type Diagnosis Age At Onset No Information Payers Payer name Insurance type Covered alliance party ID Heath fuentes(s) [employer] [place] [id number] Social History Type Description Quantity Date Captured Comments Sex Female Smoking Status No Information Chief Complaint And Reason For Visit No Information Reason For Referral Reason For Referral No Information Plan Of Treatment Date Type Action Status Goal Diet education completed Referral Ordered: Weight management: Referral to physician timeframe: 3 Months (related to Body mass index (BMI) 26.0-26.9, adult) ordered History Of Present Illness Encounter Date Complaint History Of Prese nt Illness No Information Functional Status Date Functional Assessmen t No Information Instructions Date Instruction Additional Infor mation Patient education booklet given Related to Cramp and spasm Lifestyle education Related to B lynn mass index (BMI) 26.0-26.9, adult Giving Encouragement to exercise Related to Body mass index (BMI) 26.0-26.9, adult Diet education Related to Body mass index (BMI) 26.0-26.9, adult Compression stocking usage as conservative measure Related to Cramp and spasm Assessments Type Assessment Date No Information Patient Care Teams Name Effective Dates (start - stop) Status Members No Information
--- OUTSIDE RECORDS SUMMARY | 2024-10-02 07:27 | XMS_ITS | Patient Health Record ---
Author Organization [facility] Address [address] [place] [address] Care Team Providers Care Construction Supervisor Name Role Phone Krishan TATE Juni Primary Care Provider UnaFrench [place] [facility] [phone] REASON FOR REFERRAL No Information MEDICATIONS Medication SIG (Take, Route, Fr equency, Duration) Notes Start Date End Date Status Fenofibrate 160 MG TAKE 1 TABLET BY CHRIS TH EVERY DAY WITH FOOD Oral for 30 Active NexIUM otc/when needed Acti ve IMMUNIZATIONS Vaccine Route Administration Date Status Comme nts Influenza Unknown 06/30/2019 Administered SOCIAL HISTORY Tobacco Use: Social History Observation Description Date Details (start date - stop date) Never Smoker NA - NA Sex Assigned At : Social History Observation Description Sex Assigned At Unknown Tobacco Use/Smoking Question Answer Notes Patient is a nonsmoker Alcohol Screen Question Answer Notes Did you have a drink containing alcohol in the p ast year? No Points 0 Interpretation Negative PROBLEMS Problem Type ICD Code Onset Dates Problem Status W/U Status Risk SNOMED Code Notes Problem Gastroesophageal reflux disease, esophagitis presence not specified (K21.9) Active confirmed 489130143 Problem Esophageal spasm (K22.4) Active confirmed 906684280 PLAN OF TREATMENT Future Test Test Name Order Date UPPER GI ENDOSCOPY 06/04/2020 Next Appt Details Provider Name:French Garcia , 10/18/2024 01:40:00 PM, [address], [address], [place], [address], Insurance Providers Payer Name Payer Address Payer Phone Subscriber Number Group Number Insured Name Patient Relationship to Insured Coverage Start Date Coverage End Date [employer] [place]is[place]argis [address] [address] [place] [address] [id number] 2 TIANNA ESPINOZA Self - patient is the insured MEDICAL (GENERAL) HISTORY Medical History History ICD Code Elevated cholesterol Denies [place],DM,CVA,Lung disease,renal dise ase Negative colonoscopy in 1999 and 2014 in [place] by her report Negtaive EGD in 2002 in [place]--told of a hi atal hernia by her report Neg. ETT in summer Surgical History Surgery Date(Month/Year) Tonsillectomy Cyst on left leg
[2024-10-02 07:44] LABS: MANUAL DIFF FLAG NO
[2024-10-02 07:57] LABS: Basophils Absolute Auto 0.1 X10*3/uL (0.0-0.2); Basophils Percent Auto 1.6 % (0-2); Eosinophils Absolute Auto 0.2 X10*3/uL (0.0-0.4); Eosinophils Percent Auto 4.7 % (0-4); Hematocrit 37.8 % (37.0-47.0); Imm Gran Abs Auto 0.01 X10*3/uL (0.00-0.03); Imm Gran Pct Auto 0.3 % (0.0-0.4); Lymphocytes Absolute Auto 1.7 X10*3/uL (1.2-4.9); Lymphocytes Percent Auto 45.9 % (20-40); Mean Corpuscular HGB Conc 31.7 g/dl (31.0-35.0); Mean Corpuscular Hemoglobin 26.5 pg (27.0-33.0); Mean Corpuscular Volume 83.4 fL (80.0-98.0); Mean Platelet Volume 10.4 fL (9.4-12.3); Monocytes Absolute Auto 0.5 X10*3/uL (0.1-1.2); Monocytes Percent Auto 12.6 % (2-11); Neutrophils Absolute Auto 1.3 x10*3/uL (2.0-8.3); Neutrophils Percent Auto 34.9 % (45-73); Platelet Count 284 X10*3/uL (160-400); Red Blood Count 4.53 X10*6/uL (4.20-5.50); Red Cell Distribution Width 14.5 % (11.0-16.0); White Blood Count 3.6 X10*3/uL (4.8-10.8)
[2024-10-02 08:19] LABS: Appearance Urine Clear; Color Urine Yellow; Glucose Urine UA Negative (Negative); Leukocyte Esterase Urine Moderate (2+) (Negative); Nitrite Urine Negative (Negative); UMIC TRIGGER UACC YES; Urine Blood Negative (Negative); Urine Ketones Negative (Negative); Urine Protein Negative (Neg-Trace)
[2024-10-02 08:34] LABS: Bacteria Urine None Seen (None Seen); Hyaline Casts Urine 0-2 /LPF (0-2); RBC Urine 0-2 /HPF (0-2); UACC Culture Trigger YES; WBC Urine 0-5 /HPF (0-5)
[2024-10-02 09:57] LABS: Alanine Aminotransferase 43 U/L (0-31); Albumin Level 4.6 g/dL (3.5-5.0); Alkaline Phosphatase 42 U/L (39-117); Anion Gap 10 (12-20); Aspartate Amino Transferase 33 U/L (5-31); Bilirubin Total 0.4 mg/dL (0.0-1.0); Blood Urea Nitrogen 12 mg/dL (9-16); Calcium 9.7 mg/dL (8.4-10.2); Carbon Dioxide 27 mmol/L (22-29); Chloride 109 mmol/L (96-108); Cholesterol 159 mg/dL (<200); Estimated Glomerular Filt Rate > 60; Glucose Fasting 84 mg/dL (60-99); HDL Cholesterol 45 mg/dL (>40); LDL Cholesterol Calculated 101 mg/dL (<100); Potassium 4.2 mmol/L (3.3-5.1); Sodium 142 mmol/L (135-145); Total Protein 7.7 g/dL (6.5-8.0); Triglycerides 68 mg/dL (<150)
[2024-10-02 10:03] LABS: TSH reflex Free T4 2.21 uIU/mL (0.32-4.0); Vitamin D 25-OH Total 37.5 ng/mL (>30)
== END 2024-10-02 07:24 | disposition home or self-care (01) ==
LOC: HO.LAB 07:23
PROVIDERS: PCP Internal Medicine; Visit Provider Internal Medicine
DX: D64.9 Anemia, unspecified (principal); E78.00 Pure hypercholesterolemia, unspecified; E55.9 Vitamin D deficiency, unspecified; R30.0 Dysuria
CPT/HCPCS: 36415; 80053; 80061; 81001; 81003; 82306; 84443; 85025; 87086

== ENCOUNTER 2024-10-04 14:10 | Outpatient (AMB) | payer OTHER, SELFPAY ==
[2024-10-04 14:41] VITALS: BP 116/78; PULSE 68; O2SAT 97; BMI 28.0
--- NOTE | 2024-10-04 14:41 | MHC.PC.OV ---
Vital Signs 10/04/24 14:41 Height 5 ft 4 in Weight 163 lb 6 oz BMI 28.0 BP 116/78 Blood Pressure Location Lt brachial Position Sitting Pulse 68 Pulse Source Pulse Oximeter Pulse Oximetry (%) 97 Oxygen Delivery Method Room Air Intake Visit Reasons: hyperlipidemia, varicose veins Car Body Designer Required: No Accompanied by: Self / Same As Patient Allergies No Known Allergies Allergy (Verified 10/04/24 14:57) Medication List - Last Reconciled 10/04/24 by Juni Nickerson MD esomeprazole magnesium 20 mg PO DAILY 90 days fenofibrate 160 mg PO DAILY 90 days ibuprofen 800 mg PO Q8H sertraline 50 mg PO DAILY 90 days Tobacco use date assessed: 10/04/24 Fall risk assessment: No Falls in past year Last assessed Fall Risk: 10/04/24 Dental Screening Dental Screen Date: 10/04/24 Did you have a dental visit in the last 12 months?: Yes Did you have a dental problem in the last 6 months where you did not have access to dental care?: No Was dental information given to patient?: Patient has dentist HPI hyperlipidemia, varicose veins HPI Details Patient comes in today for her follow up visit States that she feels okay She denies any headaches or dizziness Denies any chest pains, no SOB No nausea/vomiting, no abdominal pain No change in bowel habits noted She had her follow up labs done a couple of days ago - to discuss her results States that she has an appointment scheduled in a couple of weeks on 10/18/[address] Garcia, as she is due for her repeat colonoscopy She has an appointment with gynecology in November 2024 and her annual mammogram is already scheduled for sometime in March 2025 [facility] Medical History Osteoarthritis, hand Ankle pain, left Anxiety Lumbar back pain with radiculopathy affecting left lower extremity Overweight (BMI 25.0-29.9) Gastritis Mixed hyperlipidemia Other cyst of bone, left thigh Hx of hyperlipidemia Surgical History Hx of colonoscopy Hx of tonsillectomy Hx of hysterectomy Family History Father Lung cancer Mother History of breast cancer, Onset Age: 65 Hypertension Social History Housing: Condominium Alcohol intake: never Patient Tobacco Use Status: Never used Tobacco e-Cigarette/Vaping Use: Never Used Second Hand Smoke Exposure: No service: No Current occupational status: employed 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 1. Little interest or pleasure in doing things: not at all 2. Feeling down, depressed, or hopeless: not at all 3. Trouble falling or staying asleep, or sleeping too much: not at all 4. Feeling tired or having little energy: not at all 5. Poor appetite or overeating: not at all 6. Feeling bad about yourself - or that you are a failure or have let yourself or your family down: not at all 7. Trouble concentrating on things, such as reading the newspaper or watching television: not at all 8. Moving or speaking so slowly that other people could have noticed. Or the opposite - being so fidgety or restless that you have been moving around a lot more than usual: not at all 9. Thoughts that you would be better off or of hurting yourself in some way: not at all Total score: 0 Depression Screening Interpretation: Negative Depression Screening Done: Yes 26250 - PHQ-9 Billing: Yes Source: Developed by Drs. French Gomez, Rossana Tripp, Haja Carrillo and colleagues, with an educational marion from [employer]. Thrive Questionnaire Date Thrive assessed: 10/04/24 I am a: Patient What is your living situation today?: I have a steady place to live Within the past 12 months, did the food you bought not last and you didn't have the money to get more?: Never true Within the past 12 months, did you worry whether your food would run out before you got money to buy more?: Never true Do you have trouble paying for medicines?: No Do you have trouble getting transportation to medical appointments?: No Do you have trouble paying your heating and electricity bill?: No Do you have trouble taking care of your child, family member or friend?: No Do you have trouble with day-to-day activities such as bathing, preparing meals, shopping, managing finances, etc.?: No Are you currently unemployed and looking for a job?: No Are you interested in more education?: No Please select the resources that you would like help with: None Currently or been in a relationship where the following occur: No concerns reported THRIVE Score: 0 AUDIT C Alcohol Use Questionnaire (AUDIT-C) 1. How often do you have a drink containing alcohol?: Never 3. How often do you have six or more drinks on one occasion?: Never Total Score: 0 Score Reviewed/Action Taken: Yes CRISTINA-7 AMB Questionnaire CRISTINA-7 Date CRISTINA - 7 assessed: 10/04/24 Feeling nervous, anxious, or on edge: 0 = Not at all Not being able to stop or control worryin = Not at all Worrying too much about different things: 0 = Not at all Trouble relaxin = Not at all Being so restless that it is hard to sit still: 0 = Not at all Becoming easily annoyed or irritable: 0 = Not at all Feeling afraid as if something awful might happen: 0 = Not at all Total CRISTINA-7 score (0-4 normal; 5-9 mild; 10-14 moderate; 15-21 severe): 0 Source: Developed by Drs. French Gomez, Rossana Tripp, Haja Carrillo and colleagues, with an educational marion from [employer]. CRISTINA-7 Assessment Billing CRISTINA-7 Assessment Tool: CRISTINA-7 Assessment 36631 Review of Systems Const Denies chills, Denies fatigue, Denies fever(s) and Denies headache(s) ENT Denies dysphagia, Denies dizziness, Denies otalgia, Denies headache(s), Denies neck pain, Denies odynophagia and Denies sore throat Card Denies chest pain, Denies irregular heart rhythm, Denies palpitations and Denies dyspnea Resp Denies chest congestion, Denies cough and Denies dyspnea GI Denies abdominal pain, Denies constipation, Denies dysphagia, Denies heartburn, Denies diarrhea, Denies nausea, Denies odynophagia and Denies vomiting Denies urinary frequency, Denies dysuria and Denies urinary urgency Musc Denies back pain, Denies arthralgias and Denies neck pain Skin/Breast Denies rash Neuro Denies dizziness, Denies headache(s) and Denies paresthesias Psych Denies anxiety and Denies depression Endo Denies fatigue and Denies palpitations Vincent/Lymph Details: (+) varicosities on both lower extremities Denies easy bruising Physical exam (Primary Care) Vital Signs: Last Vital Signs Pulse 68 10/04/24 14:41 BP 116/78 10/04/24 14:41 Pulse Ox 97 10/04/24 14:41 Oxygen Delivery Method Room Air 10/04/24 14:41 BMI result Body Mass Index 28.0 Tobacco/Smoking Status: Tobacco use Status Tobacco use date assessed 10/04/24 10/04/24 14:48 Patient Tobacco Use Status Never used Tobacco 10/04/24 14:48 e-Cigarette/Vaping Use Never Used 10/04/24 14:48 PHQ-9: PHQ-9 Score PHQ-9: Total score 0 10/04/24 15:07 Depression Screening Interpretation: Negative Thrive Assessment: Date of Thrive Assessment Date Thrive assessed 10/04/24 10/04/24 14:48 Currently or been in a relationship where the following occur: No concerns reported Const General: no acute distress and alert HENMT Ears: TM's normal bilaterally and EAC's normal Throat: Yes posterior oropharynx normal and Yes tonsils normal (no TP congestion) Neck Neck: Yes supple and No lymphadenopathy Thyroid: Thyroid normal Resp Auscultation: clear to auscultation bilaterally, no rales and no wheezes Cardio Rate: regular rate Rhythm: regular rhythm Heart sounds: no murmurs GI Palpation (GI): Soft to palpation and nontender Auscultation: normal bowel sounds General: Yes no CVA tenderness Back/Spine/Pelvis Back: no CVA tenderness Thoracic/Lumbar Spine: No lumbar spinal tenderness Skin Rashes: no rashes Extrem Other: (+) varicosities over both lower extremities General: Yes no clubbing, cyanosis or edema Results Reviewed Results Reviewed: Laboratory Tests 10/02/24 10/02/24 07:33 07:42 Hgb 12.0 Hct 37.8 Plt Count 284 Sodium 142 Potassium 4.2 Creatinine 0.75 Estimated GFR > 60 Fasting Glucose 84 AST 33 H ALT 43 H Triglycerides 68 Cholesterol 159 LDL Cholesterol, Calc 101 H HDL Cholesterol 45 25-OH Vitamin D Total 37.5 TSH 2.21 Ur Specific [place] 1.020 Urine Protein Negative Urine Glucose (UA) Negative Urine Blood Negative Urine Nitrite Negative Ur Leukocyte Esterase Moderate (2+) H Coding Level of Care Code Est Pt Level 4 (78209) Diagnoses Mixed hyperlipidemia E78.2 Chronic gastritis without bleeding, unspecified gastritis type K29.50 Gastritis type: unspecified gastritis Chronicity: chronic Gastritis bleeding: without bleeding Varicose veins of right lower extremity with pain I83.811 Anxiety F41.9 Overweight (BMI 25.0-29.9) E66.3 Additional Codes CRISTINA-7 Assessment Billing - CRISTINA-7 Assessment Tool: CRISTINA-7 Assessment 16117 ([id number]) PHQ-9 - 06823 - PHQ-9 Billing: Yes ([id number]) Assessment & Plan Assessment & Plan (1) Mixed hyperlipidemia: Code(s): E78.2 - Mixed hyperlipidemia Category: Medical Plan: Results of her labs done a couple of days ago reviewed and discussed with patient Reinforced low cholesterol diet Continue Fenofibrate 160 mg QD Will recheck her labs and fasting lipids in 6 months for follow-up (2) Gastritis: Code(s): K29.70 - Gastritis, unspecified, without bleeding Category: Medical Qualifiers: Gastritis type: unspecified gastritis Chronicity: chronic Gastritis bleeding: without bleeding Qualified Code(s): K29.50 - Unspecified chronic gastritis without bleeding Plan: Dietary restrictions reinforced Continue Esomeprazole 20 mg QD (3) Varicose veins of right lower extremity with pain: Code(s): I83.811 - Varicose veins of right lower extremity with pain Category: Medical Plan: S/P microphlebectomy of the right leg back in April 2023 with (+) significant relief of her leg symptoms Follow up with vascular surgery (Dr. Zuniga) as scheduled (4) Anxiety: Code(s): F41.9 - Anxiety disorder, unspecified Category: Medical Plan: Patient states that she is doing well on her current medication Continue Sertraline 50 mg QD (5) Overweight (BMI 25.0-29.9): Code(s): E66.3 - Overweight Category: Medical Plan: Reinforced diet/exercise as tolerated/lose weight Plan To return in 6 months for her annual physical examination Orders: Orders Comprehensive [place]. Panel Fast 6 Months E78.00 - Pure hypercholesterolemia, unspecified TSH reflex Free T4 6 Months E78.00 - Pure hypercholesterolemia, unspecified, Z00.00 - Encounter for general adult medical examination without abnormal findings Vitamin D 25-OH Total 6 Months E55.9 - Vitamin D deficiency, unspecified, Z00.00 - Encounter for general adult medical examination without abnormal findings Complete Blood Count Auto Diff 6 Months D64.9 - Anemia, unspecified Lipid Panel 6 Months E78.00 - Pure hypercholesterolemia, unspecified UA CC w/rflx Micro + Cult 6 Months R30.0 - Dysuria, Z00.00 - Encounter for general adult medical examination without abnormal findings
--- OUTSIDE RECORDS SUMMARY | 2024-10-04 16:27 | XMS_ITS | Patient Health Record ---
Author Organization [facility] Address [address] [place] [address] Care Team Providers Care Photography Manager Name Role Phone Kvng Nickerson MDneth Primary Care Provider UnaFrench [place] [facility] [phone] REASON FOR REFERRAL No Information MEDICATIONS Medication [...] esophagitis presence not specified (K21.9) Active confirmed 622595546 Problem Esophageal spasm (K22.4) Active confirmed [id number] PLAN OF TREATMENT Future Test Test Name Order Date UPPER GI ENDOSCOPY 06/04/2020 Next Appt Details Provider Name:French Garcia , 10/18/2024 01:40:00 PM, [address], [address], [place], [address], Insurance Providers Payer Name Payer Address Payer Phone Subscriber Number Group Number Insured Name Patient Relationship to Insured Coverage Start Date Coverage End Date [employer] [place] PNargisONargis [address] [address] [place] [address] [id number] TIANNA ESPINOZA Self - patient is the insured MEDICAL (GENERAL) HISTORY Medical History History ICD Code Elevated cholesterol Denies [place],DM,CVA,Lung disease,renal dise ase Negative colonoscopy in 1999 and 2014 in [place] by her report Negtaive EGD in 2002 in [place]--told of a hi atal hernia by her report Neg. ETT in summer Surgical History Surgery Date(Month/Year) Tonsillectomy Cyst on left leg
--- OUTSIDE RECORDS SUMMARY | 2024-10-04 16:27 | XMS_ITS | Continuity of Care Document ---
Author Organization [facility] Address [address] [place] [address] [address] [place] [address] Phone Care Team Providers Care Clay Products Glazer Name Role Phone Brandt ESCAMILLA, Maria Victoria Catalan Unavailable Unavailable Procedures Procedure Date Office/Oupt E&M New Pt 30 Mins Advance Directives Directive Yes / No Effective Date File Name No Information Encounters Encounter Description Practice Location Reason(s) For Visit Diagnoses Date Provider Providers Copied on Encounter [facility], [address] [place] [address] [address] [place], [id number], tel:[phone] [facility] No Information 3 Brandt Catalan. [address] [place] [address], [place] [address], [place], [address], [place]. tel:[phone] Office/Oupt E&M New Pt 30 Mins [facility], [address] [place] [address] [address] [place], [id number], [place] tel:[phone] [facility] Cramp and spasm 3 Brandt Catalan. [facility], [address], [address], [place]. tel:[phone] Referring Provider: Maria Victoria ESCAMILLA, [address] [place] [address], [address]. tel:[phone] Family History Family Member Type Diagnosis Age At Onset No Information Payers Payer name Insurance type Covered republican ID Heath fuentes(s) [employer] [id number] Social History Type Description Quantity Date Captured [...] Information Instructions Date Instruction Additional Infor mation Compression stocking usage as conservative measure Related to Cramp and spasm Diet education Related to Body mass index (BMI) 26.0-26.9, adult Giving Encouragement to exercise Related to Body mass index (BMI) 26.0-26.9, adult Lifestyle education Related to B lynn mass index (BMI) 26.0-26.9, adult Patient education booklet given Related to Cramp and spasm Assessments Type Assessment Date No Information Patient Care Teams Name Effective Dates (start - stop) Status Members No Information
== END 2024-10-04 15:17 | disposition home or self-care (01) ==
PROVIDERS: PCP Internal Medicine; Visit Provider Internal Medicine
DX: E78.2 Mixed hyperlipidemia (principal); K29.50 Unspecified chronic gastritis without bleeding; I83.811 Varicose veins of right lower extremity with pain; F41.9 Anxiety disorder, unspecified; E66.3 Overweight

== ENCOUNTER → 2024-10-04 14:10 | Outpatient (BNVA) | payer OTHER, SELFPAY | PROVIDERS: PCP Internal Medicine; Visit Provider Internal Medicine | DX: E78.2 Mixed hyperlipidemia (principal); K29.50 Unspecified chronic gastritis without bleeding; I83.811 Varicose veins of right lower extremity with pain; F41.9 Anxiety disorder, unspecified; E66.3 Overweight; Z68.28 Body mass index [BMI] 28.0-28.9, adult; Z79.899 Other long term (current) drug therapy | CPT/HCPCS: 96127 ==

== ENCOUNTER 2024-11-15 13:08 | Outpatient (AMB) | payer OTHER, SELFPAY ==
--- NOTE | 2024-11-15 13:13 | A.OFFVIS_ITS ---
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 She is doing well with no production clerk concerns. Retiring next month and moving to [place]. Currently not sexually active. Denies any vaginal dryness or irritation. Attempting to eat a healthy diet with calcium and vitamin D and stays active with exercise. History of hysterectomy due to fibroids and heavy menstrual bleeding. Last mammogram; 2023. Colonoscopy is planned next month. Denies any family history of ovarian or colon cancer. FH-breast cancer-mom, m. cousin. [facility] Medical History (Updated 11/15/24 @ 13:14 by Thania Sargent CNM) Encounter for well woman exam with routine gynecological exam Osteoarthritis, hand Ankle pain, left Anxiety Lumbar back pain with radiculopathy affecting left lower extremity Overweight (BMI 25.0-29.9) Gastritis Mixed hyperlipidemia Other cyst of bone, left thigh Hx of hyperlipidemia Surgical History Hx of colonoscopy Hx of tonsillectomy Hx of hysterectomy Family History Father Lung cancer Mother History of breast cancer, Onset Age: 65 Hypertension Social History Housing: Condominium Alcohol intake: never Patient Tobacco Use Status: Never used Tobacco e-Cigarette/Vaping Use: Never Used Second Hand Smoke Exposure: No service: No Current occupational status: employed 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) Cognitive needs: No Hearing needs: No Vision needs: Yes Female Reproductive History Menstrual Age of Menarche: 10 Menopause type: surgical Total pregnancies: 2 Full term: 1 Number of Living Children: 1 Ab spontaneous: 1 Date of last pap smear: 04/05/18 Date of Mammogram: 03/16/24 (Birad 1) Review of Systems Const All systems reviewed & are unremarkable except as noted in HPI and below Reports as per HPI Eyes Reports no additional complaints ENT Reports no additional complaints Card Reports no additional complaints Resp Reports no additional complaints GI Reports as per HPI and Reports no additional complaints Reports as per HPI Musc Reports no additional complaints Skin/Breast Reports as per HPI Neuro Reports no additional complaints Psych Reports no additional complaints Endo Reports no additional complaints Vincent/Lymph Reports no additional complaints Aller/Immun Reports no additional complaints Physical Exam Const General: cooperative, healthy appearing, no acute distress, well developed and alert Orientation/consciousness: patient oriented x3 HEENT Head: Yes normal to inspection Eyes General: appearance normal, both eyes and all related structures Neck Neck: Yes normal visual inspection Thyroid: Thyroid normal Chest Chest palpation & inspection: normal inspection of the chest and other (no puckering, dimpling, peau de orange, retraction, discharge, masses) Breast/axilla inspection: normal inspection of the breasts Breast/axilla palpation: normal palpation of the breasts Resp Effort & Inspection: normal respiratory effort GI Inspection: Yes normal to inspection and Yes scar Palpation (GI): Soft to palpation Rectal Exam - Female: deferred General: Yes bladder normal to palpation External Female Exam: normal external appearance and normal appearance of the urethra Speculum Exam - Vagina: normal appearance of the vagina, normal palpation and normal vaginal discharge Speculum Exam - Cervix: Other cervical findings present (Vaginal cuff no lesions or nodules) Bimanual exam- vagina & uterus: normal bimanual exam, normal palpation, bladder normal to palpation and uterus absent Bimanual Exam- Adnexa, other: no masses Skin General skin exam: no rashes or lesions noted Rashes: no rashes Neuro General: patient oriented x3 Cognition (Neuro): normal cognition Extrem General: Yes normal to inspection Psych Attitude: cooperative Thought process: Normal thought process present Assessment & Plan Assessment & Plan (1) Encounter for well woman exam with routine gynecological exam: Code(s): Z01.419 - Encounter for gynecological examination (general) (routine) without abnormal findings Category: Medical Plan Discussed: Current recommendations for pap smears per ASCCP guidelines. Breast awareness, periodic self breast exams and yearly mammogram. Maintain a healthy lifestyle, well balanced diet including Calcium 1,200 mg and Vitamin D 600 IU daily, and routine exercise. Patient verbalizes understanding and agrees to the plan of care. She was given opportunity to ask questions and all questions were answered to the best of my ability. RTO in 1 year for annual production clerk exam. This note is constructed using voice recognition software. While every effort has been made to ensure accuracy, cable inspector errors may have been included. Coding Level of Care Code Est Pt Prev Care >65y(78119) Diagnoses Encounter for well woman exam with routine gynecological exam Z01.419
[2024-11-15 13:26] VITALS: BP 118/64; BMI 28.0
--- OUTSIDE RECORDS SUMMARY | 2024-11-15 15:24 | XMS_ITS ---
Author Organization [facility] Address [address] [place] [address] Care Team Providers Care Inspector Electromechanical Name Role Phone Kvng Nickerson MDneth Primary Care Provider French Reddy [phone] Allergies No Known Allergies REASON FOR VISIT Patient presents today for a COLON RECALL Medications Medication SIG (Take, Route, Fr equency, Duration) Notes Start Date End Date Status NexIUM otc/when needed Acti ve Fenofibrate 160 MG TAKE 1 TABLET BY CHRIS EVERY DAY WITH FOOD Oral for 30 Active Social History Tobacco Use: Social History Observation Description Date Details (start date - stop date) Never Smoker NA - NA Tobacco Use/Smoking Question Answer Notes Patient is a nonsmoker Alcohol Screen Question Answer Notes Did you have a drink containing alcohol in the p ast year? No Points 0 Interpretation Negative Section Notes: Nonsmoker; no sig alcohol Problems Problem Type SNOMED Code ICD Code Onset Dates Problem Status W/U Status Risk Notes Problem Colon cancer screening (206872917) Colon cancer screening (Z12.11) Active confirmed Problem Pre-procedure evaluation check (164285560) Encounter for other preprocedural examination (Z01.818) Active confirmed Problem Gastroesophageal reflux disease (716372962) GERD (gastroesophagea l reflux disease) (K21.9) Active confirmed Problem Elevated liver enzymes level (929165607) Elevated LFTs (R79.89) Active confirmed Vital Signs Temperature 97.1 degrees Fahrenheit 10/18/19 25 Blood pressure systolic 001 mm Hg 10/18/19 25 Blood pressure diastolic 01 mm Hg 025 Height 64 in 10/18/2024 Weight 165.6 lbs 10/18/2024 BMI 28.42 kg/m2 10/18/2024 Encounters Encounter Location Date Provider Diagnosis [facility] [address] [place] [address] 10/18/2024 French Garcia Colon cancer screeni ng Z12.11 ; Encounter for other preprocedural examination Z01.818 ; GERD (gastroesophageal reflux disease) K21.9 and Elevated LFTs R79.89 Assessments Encounter Date Diagnosis (ICD Code) Assessment Notes Treatment Notes Treatment Clinical Notes Section Notes 10/18/2024 Colon cancer screening (ICD-10 - Z12.11) Overall, Tianna appears quite well. We did review her previous upper endoscopy findings and at this point she is not having any new no worrisome upper GI complaints. I did advise her to certainly continue to use the davr-jpj-[id number] Nexium as needed as this seems to be working well for her. I don't think she needs a followup endoscopy at this time and would not recommend any change in her treatment for the occasional reflux symptoms. We did discuss the minimally elevated LFTs and advised that this most likely reflects a component of some fatty liver in relation to the hyperlipidemia in her weight. Given her excellent clinical appearance, minimal elevation of the liver and sent, and the clinical history, I advised her that I do not think she needs a liver workup at this time nor any imaging studies. We did review that dietary discretion, weight loss, and good control Of her cholesterol would be the best treatment for the fatty liver at this time. I would recommend that she have at least a yearly liver profile with you during her annual checkups and if anything changes with rising numbers she can certainly be reevaluated here if need be. I did recommend a screening colonoscopy given her last exam being 10 years ago, her age, and a good clinical appearance. We did review the rationale for that regard to colon cancer prevention. Full consent was obtained for this, including risks of bleeding and perforation. The procedure will be done monitored anesthesia care. Tianna was comfortable with this plan. Thank you again for allowing me to participate in Tianna's care. I shall continue to keep you advised of her progress. 10/18/2024 Encounter for other preprocedural examination (ICD-10 - Z01.818) Overall, Tianna appears quite well. We did review her previous upper endoscopy findings and at this point she is not having any new no worrisome upper GI complaints. I did advise her to certainly continue to use the [id number]-dnhzydq Nexium as needed as this seems to be working well for her. I don't think she needs a followup endoscopy at this time and would not recommend any change in her treatment for the occasional reflux symptoms. We did discuss the minimally elevated LFTs and advised that this most likely reflects a component of some fatty liver in relation to the hyperlipidemia in her weight. Given her excellent clinical appearance, minimal elevation of the liver and sent, and the clinical history, I advised her that I do not think she needs a liver workup at this time nor any imaging studies. We did review that dietary discretion, weight loss, and good control Of her cholesterol would be the best treatment for the fatty liver at this time. I would recommend that she have at least a yearly liver profile with you during her annual checkups and if anything changes with rising numbers she can certainly be reevaluated here if need be. I did recommend a screening colonoscopy given her last exam being 10 years ago, her age, and a good clinical appearance. We did review the rationale for that regard to colon cancer prevention. Full consent was obtained for this, including risks of bleeding and perforation. The procedure will be done monitored anesthesia care. Tianna was comfortable with this plan. Thank you again for allowing me to participate in Tianna's care. I shall continue to keep you advised of her progress. 10/18/2024 GERD (gastroesophageal reflux disease) (ICD-10 - K21.9) Overall, Tianna appears quite well. We did review her previous upper endoscopy findings and at this point she is not having any new no worrisome upper GI complaints. I did advise her to certainly continue to use the aaco-hrx-jlylttp Nexium as needed as this seems to be working well for her. I don't think she needs a followup endoscopy at this time and would not recommend any change in her treatment for the occasional reflux symptoms. We did discuss the minimally elevated LFTs and advised that this most likely reflects a component of some fatty liver in relation to the hyperlipidemia in her weight. Given her excellent clinical appearance, minimal elevation of the liver and sent, and the clinical history, I advised her that I do not think she needs a liver workup at this time nor any imaging studies. We did review that dietary discretion, weight loss, and good control Of her cholesterol would be the best treatment for the fatty liver at this time. I would recommend that she have at least a yearly liver profile with you during her annual checkups and if anything changes with rising numbers she can certainly be reevaluated here if need be. I did recommend a screening colonoscopy given her last exam being 10 years ago, her age, and a good clinical appearance. We did review the rationale for that regard to colon cancer prevention. Full consent was obtained for this, including risks of bleeding and perforation. The procedure will be done monitored anesthesia care. Tianna was comfortable with this plan. Thank you again for allowing me to participate in Tianna's care. I shall continue to keep you advised of her progress. 10/18/2024 Elevated LFTs (ICD-10 - R79.89) Overall, Tianna appears quite well. We did review her previous upper endoscopy findings and at this point she is not having any new no worrisome upper GI complaints. I did advise her to certainly continue to use the uuck-swz-atnkfwf Nexium as needed as this seems to be working well for her. I don't think she needs a followup endoscopy at this time and would not recommend any change in her treatment for the occasional reflux symptoms. We did discuss the minimally elevated LFTs and advised that this most likely reflects a component of some fatty liver in relation to the hyperlipidemia in her weight. Given her excellent clinical appearance, minimal elevation of the liver and sent, and the clinical history, I advised her that I do not think she needs a liver workup at this time nor any imaging studies. We did review that dietary discretion, weight loss, and good control Of her cholesterol would be the best treatment for the fatty liver at this time. I would recommend that she have at least a yearly liver profile with you during her annual checkups and if anything changes with rising numbers she can certainly be reevaluated here if need be. I did recommend a screening colonoscopy given her last exam being 10 years ago, her age, and a good clinical appearance. We did review the rationale for that regard to colon cancer prevention. Full consent was obtained for this, including risks of bleeding and perforation. The procedure will be done monitored anesthesia care. Tianna was comfortable with this plan. Thank you again for allowing me to participate in Tianna's care. I shall continue to keep you advised of her progress. Plan Of Treatment Future Test Test Name Order Date COLONOSCOPY 10/18/2024 Next Appt Details Provider Name:French Matos Jose , 12/11/2024 02:40:00 PM, [address] [place] [address] , [place], [place], [id number], Progress Notes * TIANNA HUITRON IDOB: 1960 (64 yo F)Acc No.[id number]:10/18/2024 Progress Notes Patient:?BENITO HUITRON I Provider:?French Garcia MD :1960???Age:64 Y???Sex:Female D ate:10/18/2024 Address:[address] [place], [place] [id number] Pcp:Juni Nickerson MD Subjective: * Chief Complaints: * ???1. Patient presents today for a COLON RECALL. * HPI: ???incontinence:? I saw Tianna in consultation today in regard to further evaluation of her intermittent gastroesophageal reflux, slightly elevated LFTs, And discussion of colorectal cancer screening. I last saw Tianna in July of 2020, at which time she underwent an upper endoscopy with the finding of only a small hiatal hernia and minimal changes of reflux. There was no evidence of any esophagitis or Barth's esophagus. Since that time she has continued to do well on p.r.n. over the counter and Nexium. She describes that she takes at about twice a week or intermittent heartburn with good relief. She denies any dysphagia, anorexia, early satiety, nausea, nor vomiting. She denies abdominal pain, jaundice, nor unintentional weight loss. Her bowel movements have been regular and without any signs of bleeding. She denies any known family history of colon cancer. Her last colonoscopy for screening purposes was in [place] in 2014 And was negative by her report. Recent laboratories in September revealed very minimal elevations of her liver enzymes. At that time she had an AST of 33 and ALT of 43 with a normal total bilirubin, alkaline phosphatase, and albumin. She had a normal liver profile in September of 2023. She does have a history of hyperlipidemia and is somewhat overweight. She does not use any significant amounts of alcohol and has no family history of liver disease. She denies any pruritus, fatigue, increased abdominal girth, edema, jaundice, nor any previously known liver disease in herself. * Medical History:?Elevated ch olesterol, Denies NM,DM,CVA,Lung disease,renal disease, Negative colonoscopy in 1999 and 2014 in [place] by her report, Negtaive EGD in 2002 in [place]--told of a hiatal hernia by her report, Neg. ETT in summer, EGD in 2019 with a small HH, but no esophagitis or Barth's. * Surgical History:?Tonsillect anthony , Cyst on left leg . * Family History:?Father: dece ased 56 yrs, lung cancer.?Mother: alive.?Maternal uncle: alive, diagnosed with Colon polyps.?Siblings: alive, diagnosed with HTN (hypertension).? No known hx of colon cancer. No family history of liver cancer. * Social History:?Tobacco Use:?Tobacco Use/Smoking?Patient is a?nonsmoker.?Drugs/Alcohol:?Alcohol Screen?Did you have a drink containing alcohol in the past year??No,?Points?0,?Interpretation?Negative.?Miscellaneous:?Marital status: Single. 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 ???Nonsmoker; no sig alcohol. * Medications:?Taking Fenofibr ate 160 MG Tablet TAKE 1 TABLET BY MOUTH EVERY DAY WITH FOOD Oral , Taking NexIUM otc/when needed , Medication List reviewed and reconciled with the patient * Allergies:?N.K.D.A. Objective: * Vitals:?Wt: 165.6 lbs, Ht: 6 4 in, BMI: 28.42 Index, BP: 001/01 mm Hg, Temp: 97.1, Wt-k.11. Assessment: * Assessment: 1.?Colon cancer screening - Z12.11 (Primary)???2.?Encounter for other preprocedural examination - Z01.818???3.?GERD (gastroesophageal reflux disease) - K21.9???4.?Elevated LFTs - R79.89??? Overall, Tianna appears gold te well. We did review her previous upper endoscopy findings and at this point she is not having any new no worrisome upper GI complaints. I did advise her to certainly continue to use the ifuu-nbd-tkllmuj Nexium as needed as this seems to be working well for her. I don't think she needs a followup endoscopy at this time and would not recommend any change in her treatment for the occasional reflux symptoms. We did discuss the minimally elevated LFTs and advised that this most likely reflects a component of some fatty liver in relation to the hyperlipidemia in her weight. Given her excellent clinical appearance, minimal elevation of the liver and sent, and the clinical history, I advised her that I do not think she needs a liver workup at this time nor any imaging studies. We did review that dietary discretion, weight loss, and good control Of her cholesterol would be the best treatment for the fatty liver at this time. I would recommend that she have at least a yearly liver profile with you during her annual checkups and if anything changes with rising numbers she can certainly be reevaluated here if need be. I did recommend a screening colonoscopy given her last exam being 10 years ago, her age, and a good clinical appearance. We did review the rationale for that regard to colon cancer prevention. Full consent was obtained for this, including risks of bleeding and perforation. The procedure will be done monitored anesthesia care. Tianna was comfortable with this plan. Thank you again for allowing me to participate in Tianna's care. I shall continue to keep you advised of her progress. Plan: * Treatment: * Preventive Medicine:? ??Counseling:?Care goal follow-up plan:?Above Normal BMI Follow-up?Dietary management education, guidance, and counseling,?BMI management provided?Yes.? ??Urinary Incontinence:?Urinary Incontinence?Assessment:?Absent,?Plan of care documented:?No, reason not specified.? ??Screenings:?Fall Risk Screening?Fall Risk Assessment:?No falls in the past year,?Screening:?No falls in the past year,?Assessment:?Not performed, no reason specified,?Plan of Care:?Not documented, no reason specified.? * * The named appointment provid er may or may not be the originator of this progress note, and it is not deemed complete until electronically signed by the appointment provider. Sign off status: Pending * Provider:?French Garcia MD Date:? 025 Generated for Charlette sheikh/Serg/Luma on:?11/15/2024 03:24 PM EDT History and Physical Notes * HPI (History of Present Illness) Category Sub-Category Detail Notes Category Not es incontinence I saw Tianna in consultation today in regard to further evaluation of her intermittent gastroesophageal reflux, slightly elevated LFTs, And discussion of colorectal cancer screening. I last saw Tianna in July of 2020, at which time she underwent an upper endoscopy with the finding of only a small hiatal hernia and minimal changes of reflux. There was no evidence of any esophagitis or Barth's esophagus. Since that time she has continued to do well on p.r.n. over the counter and Nexium. She describes that she takes at about twice a week or intermittent heartburn with good relief. She denies any dysphagia, anorexia, early satiety, nausea, nor vomiting. She denies abdominal pain, jaundice, nor unintentional weight loss. Her bowel movements have been regular and without any signs of bleeding. She denies any known family history of colon cancer. Her last colonoscopy for screening purposes was in [place] in 2014 And was negative by her report. Recent laboratories in September revealed very minimal elevations of her liver enzymes. At that time she had an AST of 33 and ALT of 43 with a normal total bilirubin, alkaline phosphatase, and albumin. She had a normal liver profile in September of 2023. She does have a history of hyperlipidemia and is somewhat overweight. She does not use any significant amounts of alcohol and has no family history of liver disease. She denies any pruritus, fatigue, increased abdominal girth, edema, jaundice, nor any previously known liver disease in herself.
--- OUTSIDE RECORDS SUMMARY | 2024-11-15 15:25 | XMS_ITS | Patient Health Record ---
Author Organization [facility] Address [address] [place] [address] Care Team Providers Care Safety Engineer [employer] Name Role Phone Eron Nickerson MDh Primary Care Provider [employer]a[place] [phone] Allergies No Known Allergies Reason For Referral No Information Medications Medication SIG (Take, Route, Fr equency, Duration) Notes Start Date End Date Status NexIUM otc/when needed Acti ve Fenofibrate 160 MG TAKE 1 TABLET BY CHRIS EVERY DAY WITH FOOD Oral for 30 Active Immunizations Vaccine Route Administration Date Status Comme nts Influenza Unknown 06/30/2019 Administered Influenza Unknown 06/27/2024 Administered Social History Tobacco Use: Social History Observation Description Date Details (start date - stop date) Never Smoker NA - NA Tobacco Use/Smoking Question Answer Notes Patient is a nonsmoker Alcohol Screen Question Answer Notes Did you have a drink containing alcohol in the p ast year? No Points 0 Interpretation Negative Section Notes: Nonsmoker; no sig alcohol Nonsmoker; no sig alcohol Nonsmoker; no sig alcohol Problems Problem Type SNOMED Code ICD Code Onset Dates Problem Status W/U Status Risk Notes Problem Colon cancer screening (110486780) Colon cancer screening (Z12.11) Active confirmed Problem Pre-procedure evaluation check (845072433) Encounter for other preprocedural examination (Z01.818) Active confirmed Problem Elevated liver enzymes level (817633251) Elevated LFTs (R79.89) Active confirmed Problem 762329928 Gastroesophageal reflux disease, esophagitis presence not specified (K21.9) Active confirmed Problem 640625960 Esophageal spasm (K22.4) Active confirmed Problem Gastroesophageal reflux disease (304102281) GERD (gastroesophageal reflux disease) (K21.9) Active confirmed Vital Signs Temperature 97.1 degrees Fahrenheit 10/18/2024 Blood pressure diastolic 01 mm Hg 10/18/2024 Height 64 in 10/18/2024 Blood pressure systolic 001 mm Hg 10/18/2024 Weight 165.6 lbs 10/18/2024 BMI 28.42 kg/m2 10/18/2024 Encounters Encounter Location Date Provider Diagnosis [facility] [address] [place] [address] 10/18/2024 French Garcia Colon cancer screeni ng [...] her to certainly continue to use the byyk-exv-smrtgwu Nexium as needed as this seems to [...] her to certainly continue to use the pxgj-nxh-dwntatv Nexium as needed as this seems to [...] her to certainly continue to use the znzg-wuq-agtqwyy Nexium as needed as this seems to [...] her to certainly continue to use the fgfb-xke-qninqbt Nexium as needed as this seems to [...] Treatment Future Test Test Name Order Date UPPER GI ENDOSCOPY 06/04/2020 COLONOSCOPY 10/18/2024 Next Appt Details Provider Name:French Garcia , 12/11/2024 02:40:00 PM, [address] [place] [address] , [place], [place], [id number], Insurance Providers Payer Name Payer Address Payer Phone Subscriber Number Group Number Insured Name Patient Relationship to Insured Coverage Start Date Coverage End Date [employer] [place] [address] [address] [place] [address] [id number] GARCIA CALIXTO TIANNA Self - patient is the insured Medical (General) History Medical History History ICD Code Elevated cholesterol Denies AR,DM,CVA,Lung disease,renal dise ase Negative colon[place] 1999 and 2014 in [place] by [place] Negtaive E[place] in 2002 in [place]--told of a hi atal hernia by her report Neg. ETT in summer EGD in 2019 with a small HH, but no esop hagitis or Barth's Surgical History Surgery Date(Month/Year) Cyst on left leg Tonsillectomy
== END 2024-11-15 15:28 | disposition home or self-care (01) ==
LOC: HO.HWS 13:08
PROVIDERS: PCP Internal Medicine; Visit Provider Advanced Practice Midwife
DX: Z01.419 Encounter for gynecological examination (general) (routine) without abnormal findings (principal)
CPT/HCPCS: 99397; 99459

== ENCOUNTER 2024-12-11 12:51 | Day surgery (SDC) | payer OTHER, SELFPAY ==
[2024-12-07 13:46] VITALS: BMI 28.4
--- NOTE | 2024-12-08 09:43 | P.CONAN_ITS ---
HPI - Anesthesia Eval Consult details Narrative: 64yo F for Colonoscopy [facility] Active Problems Active Problems: All Active Problems Positive NANDO (antinuclear antibody) (Acute) Swelling of finger joint of left hand (Acute) Pain in finger of left hand (Acute) Avulsion fracture of ankle (Acute) Left ankle sprain (Acute) Varicose veins of right lower extremity with inflammation (Acute) Right hand pain (Acute) Right-sided face pain (Acute) Right shoulder pain (Acute) Status post fall (Acute) Swelling of right hand (Acute) Varicose veins of right lower extremity with pain (Acute) Annual physical exam (Acute) Female bladder prolapse (Acute) Encounter for well woman exam with routine gynecological exam (Acute) Osteoarthritis, hand (Acute) Anxiety (Acute) Lumbar back pain with radiculopathy affecting left lower extremity (Acute) Overweight (BMI 25.0-29.9) (Acute) Gastritis (Acute) Mixed hyperlipidemia (Acute) Past Medical History Medical History Encounter for well woman exam with routine gynecological exam Osteoarthritis, hand Ankle pain, left Anxiety Lumbar back pain with radiculopathy affecting left lower extremity Overweight (BMI 25.0-29.9) Gastritis Mixed hyperlipidemia Other cyst of bone, left thigh Hx of hyperlipidemia Family History Family History Father Lung cancer Mother History of breast cancer, Onset Age: 65 Hypertension Surgical History Surgical History (Updated 12/07/24 @ 13:45 by Val Stanford RN) Hx of excision of mass History of esophagogastroduodenoscopy (EGD) Hx of colonoscopy Hx of tonsillectomy Hx of hysterectomy Social History Social History Housing: Condominium Alcohol intake: never Patient Tobacco Use Status: Never used Tobacco e-Cigarette/Vaping Use: Never Used Second Hand Smoke Exposure: No service: No Current occupational status: employed 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
[2024-12-11 13:32] VITALS: BMI 27.8
[2024-12-11 13:34] VITALS: BP 129/79; PULSE 72; RESP 16; TEMP 36.6; O2SAT 97
[2024-12-11] MEDS: Lactated Ringers 1,000 ML 100 ML IVCONT (14:20)
--- NOTE | 2024-12-11 15:17 | HO.ANESPROP2 ---
[facility] Active Problems Active Problems: All Active Problems Positive NANDO (antinuclear antibody) (Acute) Swelling of finger joint of left hand (Acute) Pain in finger of left hand (Acute) Avulsion fracture of ankle (Acute) Left ankle sprain (Acute) Varicose veins of right lower extremity with inflammation (Acute) Right hand pain (Acute) Right-sided face pain (Acute) Right shoulder pain (Acute) Status post fall (Acute) Swelling of right hand (Acute) Varicose veins of right lower extremity with pain (Acute) Annual physical exam (Acute) Female bladder prolapse (Acute) Encounter for well woman exam with routine gynecological exam (Acute) Osteoarthritis, hand (Acute) Anxiety (Acute) Lumbar back pain with radiculopathy affecting left lower extremity (Acute) Overweight (BMI 25.0-29.9) (Acute) Gastritis (Acute) Mixed hyperlipidemia (Acute) Past Medical History Medical History Encounter for well woman exam with routine gynecological exam Osteoarthritis, hand Ankle pain, left Anxiety Lumbar back pain with radiculopathy affecting left lower extremity Overweight (BMI 25.0-29.9) Gastritis Mixed hyperlipidemia Other cyst of bone, left thigh Hx of hyperlipidemia Functional capacity: independent ambulation Patient : No Family History Family History Father Lung cancer Mother History of breast cancer, Onset Age: 65 Hypertension Surgical History Surgical History Hx of excision of mass History of esophagogastroduodenoscopy (EGD) Hx of colonoscopy Hx of tonsillectomy Hx of hysterectomy History of Problems with Anesthesia: No Social History Social History Housing: Condominium Alcohol intake: never Patient Tobacco Use Status: Never used Tobacco e-Cigarette/Vaping Use: Never Used Second Hand Smoke Exposure: No Use of substances other than those prescribed or required for medical reasons: No Are you DNR?: No Advance Directives: No Advance Directives Information Provided: Yes service: No Current occupational status: employed 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-Dibasic 133 Ml Enema) 133 ml ID ONCE PRN PRN Reason: Poor Colonoscopy Prep Results Exam Height,Weight and Vital Signs: Height 5 ft 4 in Weight 73.482 kg Last Vital Signs Temp 97.8 F 12/11/24 13:34 Pulse 72 12/11/24 13:34 Resp 16 12/11/24 13:34 BP 129/79 12/11/24 13:34 Pulse Ox 97 12/11/24 13:34 O2 Del Method Room Air 12/11/24 13:34 Airway Mallampati Class: II TM Dist: >3cm Neck ROM: Full Heart: RRR Lungs: CTA Assessment and Plan Assessment Anesthesia Assessment: Anesthesia Plan Discussed and Chart Reviewed Final Anesthetic Review History of Problems with Anesthesia: No NPO: Yes ASA Class: II Final Preanesthetic Review: Meds/Allgs Chart Reviewed, Consent Obtained/Reviewed and Anes Risks/Benef Reviewed Patient Risk: Low Procedure Risk: Low Anesthetic Plan Anesthetic Plan: MAC: Disposition: Standard PACU
[2024-12-11 15:50] VITALS: BP 108/69; PULSE 79; RESP 16; TEMP 36.6; O2SAT 96
--- NOTE | 2024-12-11 15:52 | P.BOP_ITS ---
Brief Operative Note Date of Service: 12/11/24 Pre-op diagnosis: Screening Post-op diagnosis: other (Polyp) Procedure: Colonoscopy to the cecum and TI with bx/removal of polyp Surgeon: French Garcia MD Anesthesia: MAC Was an Incinerator Plant Laborer used for this Procedure?: No Estimated blood loss (mL): 2.0 Pathology: other (A. Transverse colon polyp) Condition: stable Disposition: PACU
[2024-12-11 16:05] VITALS: BP 100/63; PULSE 69; RESP 17; O2SAT 98
--- NOTE | 2024-12-11 16:12 | HO.POSTANES ---
Post Anesthesia Evaluation Post Anesthesia Evaluation Date of Service: 12/11/24 Vital Signs: Vital Signs Temp Pulse Resp BP Pulse Ox O2 Del Method 12/11/24 16:05 69 17 100/63 98 Room Air 12/11/24 15:50 97.9 F 79 16 108/69 96 Room Air 12/11/24 13:34 97.8 F 72 16 129/79 97 Room Air Anesthesia: Monitored Mental Status: Awake Pain Control: Satisfactory Nausea/Vomiting: None Hydration: Adequate Anesthesia-Related Issues: No Anes. Related Issues
[2024-12-11 16:20] VITALS: BP 119/76; PULSE 68; RESP 18; TEMP 36.4; O2SAT 97
--- NOTE | 2024-12-12 02:23 | OP_ITS ---
DATE OF SERVICE: 12/11/2024 SURGEON: French Garcia MD INDICATIONS: The patient presents for evaluation of colorectal cancer screening. Full consent has been obtained from her for this, including risks of bleeding and perforation. PREOPERATIVE DIAGNOSIS: Colorectal cancer screening. POSTOPERATIVE DIAGNOSIS: PROCEDURE PERFORMED: Colonoscopy to the cecum and terminal ileum with biopsy and removal of polyp. ESTIMATED BLOOD LOSS: COMPLICATIONS: ANESTHESIA: Medication used, monitored anesthesia care. ASSISTANTS: SPECIMENS: POSTOPERATIVE DIAGNOSES: Colorectal cancer screening, small colon polyp, lipoma in sigmoid colon, occasional diverticulosis, and internal hemorrhoids. DESCRIPTION OF PROCEDURE: The patient was placed in the left lateral decubitus position. The digital rectal exam revealed no abnormalities. The Olympus video pediatric colonoscope was entered into the rectum and advanced easily to the cecum. Once in the cecum, I did identify normal-appearing cecal pouch with appendiceal orifice and a normal-appearing ileocecal valve. The entire cecum was well visualized and appeared normal. The terminal ileum was cannulated and appeared normal. The scope was withdrawn back in the colon. The entire cecum and ileocecal valve appeared normal. The scope was slowly withdrawn assessing all mucosal surfaces carefully. Preparation was excellent. In the transverse colon was a flat 3 or 4 mm polyp, which was biopsied and completely removed with a cold biopsy forceps. I did not visualize any other polyps, colitis, nor angiodysplasia at approximately 30 cm was what appeared to be a lipoma with normal overlying mucosa, somewhat yellowish in appearance, and quite soft with a pillow sign when irrigated with the jet of water. There were occasional sigmoid diverticula noted as well. In the rectum, scope was retroflexed visualizing internal hemorrhoids, but no other pathology. The rectal mucosa appeared normal. The scope was straightened and withdrawn from the patient. She tolerated the procedure well and was returned to the recovery area in stable condition. IMPRESSION: 1. Small colon polyp. 2. Sigmoid diverticulosis. 3. Lipoma in sigmoid colon. 4. Internal hemorrhoids. PLAN: The results of the biopsy will be checked. If the colon polyp happens to be a tubular adenoma, I would recommend a followup coloscopy in 5 years. If it is only hyperplastic, I would recommend a followup colonoscopy in 10 years. She will otherwise see me on a p.r.n. basis. MD EFREN Choi/HUSAM / [phone]
== END 2024-12-11 16:40 | disposition home or self-care (01) ==
PROVIDERS: PCP Internal Medicine; Visit Provider Internal Medicine
PROC: 0DJD8ZZ Inspection of Lower Intestinal Tract, Via Natural or Artificial Opening Endoscopic (ICD-10-PCS; CPT 45378; principal; 2024-12-11 14:30)
DX: Z12.11 Encounter for screening for malignant neoplasm of colon (principal); D12.3 Benign neoplasm of transverse colon; K57.30 Diverticulosis of large intestine without perforation or abscess without bleeding; K64.8 Other hemorrhoids; D17.5 Benign lipomatous neoplasm of intra-abdominal organs; K21.9 Gastro-esophageal reflux disease without esophagitis; K44.9 Diaphragmatic hernia without obstruction or gangrene; R79.89 Other specified abnormal findings of blood chemistry; E78.00 Pure hypercholesterolemia, unspecified; Z79.899 Other long term (current) drug therapy
CPT/HCPCS: 45380; 88305; J2003; J2704

== ENCOUNTER 2025-01-23 07:10 | Outpatient (REF) | payer OTHER, SELFPAY ==
--- OUTSIDE RECORDS SUMMARY | 2025-01-23 07:13 | XMS_ITS ---
Author Organization [facility] Address [address] [place] [address] Care Team Providers Care Bed Teacher Name Role Phone Kvng Nickerson MDneth Primary Care Provider French Reddy [phone] Allergies No Known Allergies REASON FOR VISIT [...] Status Risk Notes Problem Colon cancer screening (030815302) Colon cancer screening (Z12.11) Active confirmed Problem Pre-procedure evaluation check (184962457) Encounter for other preprocedural examination (Z01.818) Active confirmed Problem Gastroesophageal reflux disease (522996195) GERD (gastroesophagea l reflux disease) (K21.9) Active confirmed Problem Elevated liver enzymes level (021094427) Elevated LFTs (R79.89) Active confirmed Vital Signs Temperature 97.1 degrees Fahrenheit 10/18/19 25 Blood pressure systolic 001 mm Hg 10/18/19 25 Blood pressure diastolic 01 mm Hg 025 Height 64 in 10/18/2024 Weight 165.6 lbs 10/18/2024 BMI 28.42 kg/m2 10/18/2024 Encounters Encounter Location Date Provider Diagnosis [facility] [address] [place] [address] 10/18/2024 French Garcia Colon cancer screeni ng Z12.11 ; Elevated LFTs R79.89 ; Encounter for other preprocedural examination Z01.818 and GERD (gastroesophageal reflux disease) K21.9 Assessments Encounter Date Diagnosis (ICD Code) Assessment Notes Treatment Notes Treatment Clinical Notes Section Notes 10/18/2024 Colon cancer screening (ICD-10 - Z12.11) Overall, Tianna appears quite well. We did review her previous upper endoscopy findings and at this point she is not having any new nor worrisome upper GI complaints. I did advise her to certainly continue to use the kmgo-eql-psseeby Nexium as needed as this seems to be working well for her. I don't think she needs a followup endoscopy at this time and would not recommend any change in her treatment for the occasional reflux symptoms. We did discuss the minimally elevated LFTs and I advised her that this most likely reflects a component of some fatty liver in relation to the hyperlipidemia and her weight. Given her excellent clinical appearance, minimal elevation of the liver enzymes and the clinical history, I advised her that I do not think she needs a liver workup at this time nor any imaging studies. We did review that dietary discretion, weight loss, and good control of her cholesterol would be the best treatment [...] being 10 years ago, her age, and her good clinical appearance. We did review the rationale for that in regard to colon cancer prevention. Full consent was obtained for this, including risks of bleeding and perforation. The procedure will be done with monitored anesthesia care. Tianna was comfortable with this plan. Thank you again for allowing me to participate in Tianna's care. I shall continue to keep you advised of her progress. 10/18/2024 Elevated LFTs (ICD-10 - R79.89) Overall, Tianna appears quite well. We did review her previous upper endoscopy findings and at this point she is not having any new nor worrisome upper GI complaints. I did advise her to certainly continue to use the nmgh-dmn-wkyfteb Nexium as needed as this seems to be working well for her. I don't think she needs a followup endoscopy at this time and would not recommend any change in her treatment for the occasional reflux symptoms. We did discuss the minimally elevated LFTs and I advised her that this most likely reflects a component of some fatty liver in relation to the hyperlipidemia and her weight. Given her excellent clinical appearance, minimal elevation of the liver enzymes and the clinical history, I advised her that I do not think she needs a liver workup at this time nor any imaging studies. We did review that dietary discretion, weight loss, and good control of her cholesterol would be the best treatment [...] being 10 years ago, her age, and her good clinical appearance. We did review the rationale for that in regard to colon cancer prevention. Full consent was obtained for this, including risks of bleeding and perforation. The procedure will be done with monitored anesthesia care. Tianna was comfortable with this plan. Thank you again for allowing me to participate in Tianna's care. I shall continue to keep you advised of her progress. 10/18/2024 Encounter for other preprocedural examination (ICD-10 - Z01.818) Overall, Tianna appears quite well. We did review her previous upper endoscopy findings and at this point she is not having any new nor worrisome upper GI complaints. I did advise her to certainly continue to use the qfkn-pqd-paqnjbx Nexium as needed as this seems to be working well for her. I don't think she needs a followup endoscopy at this time and would not recommend any change in her treatment for the occasional reflux symptoms. We did discuss the minimally elevated LFTs and I advised her that this most likely reflects a component of some fatty liver in relation to the hyperlipidemia and her weight. Given her excellent clinical appearance, minimal elevation of the liver enzymes and the clinical history, I advised her that I do not think she needs a liver workup at this time nor any imaging studies. We did review that dietary discretion, weight loss, and good control of her cholesterol would be the best treatment [...] being 10 years ago, her age, and her good clinical appearance. We did review the rationale for that in regard to colon cancer prevention. Full consent was obtained for this, including risks of bleeding and perforation. The procedure will be done with monitored anesthesia care. Tianna was comfortable with this plan. Thank you again for allowing me to participate in Tianna's care. I shall continue to keep you advised of her progress. 10/18/2024 GERD (gastroesophageal reflux disease) (ICD-10 - K21.9) Overall, Tianna appears quite well. We did review her previous upper endoscopy findings and at this point she is not having any new nor worrisome upper GI complaints. I did advise her to certainly continue to use the yimt-chl-dsnjyzu Nexium as needed as this seems to be working well for her. I don't think she needs a followup endoscopy at this time and would not recommend any change in her treatment for the occasional reflux symptoms. We did discuss the minimally elevated LFTs and I advised her that this most likely reflects a component of some fatty liver in relation to the hyperlipidemia and her weight. Given her excellent clinical appearance, minimal elevation of the liver enzymes and the clinical history, I advised her that I do not think she needs a liver workup at this time nor any imaging studies. We did review that dietary discretion, weight loss, and good control of her cholesterol would be the best treatment [...] being 10 years ago, her age, and her good clinical appearance. We did review the rationale for that in regard to colon cancer prevention. Full consent was obtained for this, including risks of bleeding and perforation. The procedure will be done with monitored anesthesia care. Tianna was comfortable with this plan. Thank you again for allowing me to participate in Tianna's care. I shall continue to keep you advised of her progress. Plan Of Treatment Future Test Test Name Order Date COLONOSCOPY 10/18/2024 Next Appt Details Follow Up: prn, Reason: Progress Notes * TIANNA HUITRON IDOB: 1960 (64 yo F)Acc No.[id number]:10/18/2024 Progress Notes Patient:?BENITO HUITRON I Provider:?French Garcia MD :1960???Age:64 Y???Sex:Female D ate:10/18/2024 Address:[address] [place] [address] Pcp:Juni Nickerson MD Subjective: * Chief Complaints: * ???Patient presents today fo r a COLON RECALL * HPI: ???incontinence:? I saw Tianna in consultation today in regard to further evaluation of her intermittent gastroesophageal reflux, slightly elevated LFTs, and discussion of colorectal cancer screening. I last saw Tianna in July of 2020, at which time she underwent an upper endoscopy with the finding of only a small hiatal hernia and minimal changes of reflux. There was no evidence of any esophagitis or Barth's esophagus. Since that time she has continued to do well on p.r.n. over the counter antacids and Nexium. She describes that she takes Nexium?about twice a week for intermittent heartburn with good relief. She denies any dysphagia, anorexia, early satiety, nausea, nor vomiting. She denies abdominal pain, jaundice, nor unintentional weight loss. Her bowel movements have been regular and without any signs of bleeding. She denies any known family history of colon cancer. Her last colonoscopy for screening purposes was in [place] in 2014 and was negative by her report. Recent laboratories [...] previously known liver disease in herself. * ROS:?General/Constitutional:?Change in appetite?denies.?Chills?denies.?Fatigue?denies.?Ophthalmologic:?Comments?all negative.?ENT:?Comments?all negative.?Respiratory:?hemoptysis?denies.?Cough?denies.?Cardiovascular:?Chest pain?denies.?Orthopnea?denies.?Gastrointestinal:?Comments?See HPI for details.?Genitourinary:?Hematuria?denies.?Dysuria?denies.?Musculoskeletal:?Painful joints?denies.?Weakness?denies.?Skin:?Itching?denies.?Rash?denies.?Neurologic:?Headache?denies.?Seizures?denies.?Psychiatric:?Comments?all negative.? * Medical History:? * Surgical History:?Tonsillect anthony Cyst on left leg * Hospitalization/Major Diagno stic Procedure:?No Hospitalization History. * Family History:?Father: dece ased 56 yrs, lung cancer.?Mother: alive.?Maternal uncle: alive, diagnosed with Colon polyps.?Siblings: alive, diagnosed with HTN (hypertension).? No known hx of colon cancer. No family history of liver cancer. * Social History:?Tobacco Use:?Tobacco Use/Smoking?Patient is a?nonsmoker.?Drugs/Alcohol:?Alcohol Screen?Did you have a drink containing alcohol in the past year??No,?Points?0,?Interpretation?Negative.?Miscellaneous:?Marital status: Single. 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 ???Nonsmoker; no sig alcohol. * Medications:?TakingFenofibra te 160 MG Tablet TAKE 1 TABLET BY MOUTH EVERY DAY WITH FOOD Oral NexIUM otc/when needed Medication List reviewed and reconciled with the patientTaking Fenofibrate 160 MG Tablet TAKE 1 TABLET BY MOUTH EVERY DAY WITH FOOD Oral Taking NexIUM otc/when needed Medication List reviewed and reconciled with the patient * Allergies:?N.K.D.A.yes[Aller gies Verified] Objective: * Vitals:?Wt: 165.6 lbs, Ht: 6 4 in, BMI: 28.42 Index, BP: 001/01 mm Hg, Temp: 97.1, Wt-k.11. * Examination: ???General Examination: ?GENERAL APPEARANCE:?pleasant, well nourished, well developed, in no acute distress.?EYES:?sclera non-icteric.?ORAL CAVITY:?mucosa moist.?NECK/THYROID:?no cervical lymphadenopathy, neck supple.?SKIN:?nonjaundiced, no spider angiomata.?HEART:?S1, S2 normal.?LUNGS:?clear to auscultation bilaterally.?ABDOMEN:?normal bowel sounds, no guarding or rigidity, no guarding or rigidity, no masses palpable, soft, nontender, nondistended.?EXTREMITIES:?no edema.?NEUROLOGIC:?alert and oriented.? Assessment: * Assessment: 1.?Elevated LFTs - R79.89 (P rimary)???2.?Colon cancer screening - Z12.11???3.?Encounter for other preprocedural examination - Z01.818???4.?GERD (gastroesophageal reflux disease) - K21.9??? Overall, Tianna appears gold te well. We did review her previous upper endoscopy findings and at this point she is not having any new nor worrisome upper GI complaints. I did advise her to certainly continue to use the sykn-ozy-faeraqc Nexium as needed as this seems to be working well for her. I don't think she needs a followup endoscopy at this time and would not recommend any change in her treatment for the occasional reflux symptoms. We did discuss the minimally elevated LFTs and I advised her that this most likely reflects a component of some fatty liver in relation to the hyperlipidemia and her weight. Given her excellent clinical appearance, minimal elevation of the liver enzymes? and the clinical history, I advised her that I do not think she needs a liver workup at this time nor any imaging studies. We did review that dietary discretion, weight loss, and good control of her cholesterol would be the best treatment [...] being 10 years ago, her age, and her good clinical appearance. We did review the rationale for that in regard to colon cancer prevention. Full consent was obtained for this, including risks of bleeding and perforation. The procedure will be done with monitored anesthesia care. Tianna was comfortable with this plan. Thank you again for allowing me to participate in Tianna's care. I shall continue to keep you advised of her progress. Plan: * Treatment: * Procedure Codes:?3017F COLOR ECTAL CA SCREEN DOC [id number] TOBACCO [id number] BP SCR NOT PRFRM REC REASON NOS * Preventive Medicine:? ??Counseling:?Care goal follow-up plan:?Above Normal BMI Follow-up?Dietary management education, guidance, and counseling,?BMI management provided?Yes.? ??Urinary Incontinence:?Urinary Incontinence?Assessment:?Absent,?Plan of care documented:?No, reason not specified.? ??Screenings:?Fall Risk Screening?Fall Risk Assessment:?No falls in the past year,?Screening:?No falls in the past year,?Assessment:?Not performed, no reason specified,?Plan of Care:?Not documented, no reason specified.? * Follow Up:?prn * * Sign off status: Completed true * Provider:?French Garcia MD Date:? 025 Generated for Charlette sheikh/Serg/Luma on:?01/23/2025 07:13 AM EDT History and Physical Notes * HPI (History of Present Illness) Category Sub-Category Detail Notes Category Not es incontinence I saw Tianna in consultation today in regard to further evaluation of her intermittent gastroesophageal reflux, slightly elevated LFTs, and discussion of colorectal cancer screening. I last saw Tianna in July of 2020, at which time she underwent an upper endoscopy with the finding of only a small hiatal hernia and minimal changes of reflux. There was no evidence of any esophagitis or Barth's esophagus. Since that time she has continued to do well on p.r.n. over the counter antacids and Nexium. She describes that she takes Nexium about twice a week for intermittent heartburn with good relief. She denies any dysphagia, anorexia, early satiety, nausea, nor vomiting. She denies abdominal pain, jaundice, nor unintentional weight loss. Her bowel movements have been regular and without any signs of bleeding. She denies any known family history of colon cancer. Her last colonoscopy for screening purposes was in [place] in 2014 and was negative by her report. Recent laboratories [...] any previously known liver disease in herself. Examination Category Sub-Category Detail Notes Category Not es General Examination GENERAL APPEARANCE: pleasant , well nourished, well developed, in no acute distress HEAD: EYES: sclera non-icteric EARS: NOSE: THROAT: NECK/THYROID: no cervical lymphade nopathy, neck supple HEART: S1, S2 normal CHEST: LUNGS: clear to auscultatio n bilaterally ABDOMEN: normal bowel sounds, no guarding or rigidity, no guarding or rigidity, no masses palpable, soft, nontender, nondistended NEUROLOGIC: alert and oriented SKIN: nonjaundiced, no spi jose luis angiomata EXTREMITIES: no edema PERIPHERAL PULSES: BACK: BREASTS: MUSCULOSKELETAL: MALE GENITOURINARY: LYMPH NODES: RECTAL EXAM: FEMALE GENITOURINARY: ORAL CAVITY: mucosa moist
--- OUTSIDE RECORDS SUMMARY | 2025-01-23 07:13 | XMS_ITS | Patient Health Record ---
Author Organization [facility] Address [address] [place] [address] Care Team Providers Care Consumer Services Consultant Name Role Phone Krishan TATE [place] Primary Care Provider Unava French Fink Unavailable [phone] Allergies No Known Allergies Results Component Value Reference Range Notes Pathology (Not yet reviewed by provider) Interpretation: Performing Lab:[facility], [address] [place] [id number] Notes/Report: Name: Tianna Ronquillo Age/Sex: 64/F : 1960 Unit#: [id number] Attend Dr: French Garcia MD Re12/11/24 [facility] Location: [facility] Disch: SPEC : [id number] RECD : 12/12/24 STATUS: SHABANA STREETER NUM: [id number] TONJA: 12/11/24-[address] [facility] [address]: French Garcia MD ENTERED: 12/12/24 SP TYPE: Surgical OTHR DR: Juni Nickerson MD ORDERED: HE Stain/3, Gross Micro L4 Diagnosis Colon, transverse, p olyp: Tubular adenoma; negative for high-grade dysplasia and carcinoma. Clinical History Pre-Op Dx: Screening Post-Op Dx: Colon po lyp, diverticulosis, hemorrhoids Microscopic Description Microscopic sections reviewed. Material Received Transverse colon polyp Gross Description Received in formalin labeled ?transverse colon polyp? are 2 lacey irregular tissue fragments measuring 0.25 and 0 .3 cm, submitted in toto in a cassette labeled A. CEDS Copies To: Juni Nickerson MD [facility] [place] [address] French Garcia MD [facility] [address] [place] [address] Signed (si gnature on file) Aleshia Feng 12/13/24 1628 END OF REPORT Reason For Referral No Information Medications Medication [...] Status Risk Notes Problem Colon cancer screening (580871241) Colon cancer screening (Z12.11) Active confirmed Problem Pre-procedure evaluation check (635457650) Encounter for other preprocedural examination (Z01.818) Active confirmed Problem Elevated liver enzymes level (821948272) Elevated LFTs (R79.89) Active confirmed Problem 248657025 Gastroesophageal reflux disease, esophagitis presence not specified (K21.9) Active confirmed Problem 966355040 Esophageal spasm (K22.4) Active confirmed Problem Gastroesophageal reflux disease (861244335) GERD (gastroesophageal reflux disease) (K21.9) Active confirmed Vital Signs Temperature 97.1 degrees Fahrenheit 10/18/2024 Blood pressure diastolic 01 mm Hg 10/18/2024 Height 64 in 10/18/2024 Blood pressure systolic 001 mm Hg 10/18/2024 Weight 165.6 lbs 10/18/2024 BMI 28.42 kg/m2 10/18/2024 Encounters Encounter Location Date Provider Diagnosis [facility] [address] [place], [place] [phone] 12/11/2024 French Garcia Colon cancer screeni ng Z12.11 ; Colon polyps K63.5 ; Diverticulosis of large intestine without perforation or abscess without bleeding K57.30 and Other hemorrhoids K64.8 [facility] [address] [place] [address] 10/18/2024 French Garcia Colon cancer screeni ng Z12.11 ; Elevated LFTs R79.89 ; Encounter for other preprocedural examination Z01.818 and GERD (gastroesophageal reflux disease) K21.9 Assessments Encounter Date Diagnosis (ICD Code) Assessment Notes Treatment Notes Treatment Clinical Notes Section Notes 12/11/2024 Colon cancer screening (ICD-10 - Z12.11) 12/11/2024 Colon polyps (ICD-10 - K63.5) 10/18/2024 Colon cancer screening (ICD-10 - Z12.11) Overall, Tianna appears quite well. We did review her previous upper endoscopy findings and at this point she is not having any new nor worrisome upper GI complaints. I did advise her to certainly continue to use the gqmm-gtr-bdyneap Nexium as needed as this seems to [...] her to certainly continue to use the zldd-nmy-rdtwqgi Nexium as needed as this seems to [...] to keep you advised of her progress. 12/11/2024 Diverticulosis of large intestine without perforation or abscess without bleeding (ICD-10 - K57.30) 10/18/2024 Encounter for other preprocedural examination (ICD-10 - Z01.818) Overall, Tianna appears quite well. We did review her previous upper endoscopy findings and at this point she is not having any new nor worrisome upper GI complaints. I did advise her to certainly continue to use the owtd-ftk-opyydtt Nexium as needed as this seems to [...] to keep you advised of her progress. 12/11/2024 Other hemorrhoids (ICD-10 - K64.8) 10/18/2024 GERD (gastroesophageal reflux disease) (ICD-10 - K21.9) Overall, Tianna appears quite well. We did review her previous upper endoscopy findings and at this point she is not having any new nor worrisome upper GI complaints. I did advise her to certainly continue to use the llek-hnf-yetoxdo Nexium as needed as this seems to [...] advised of her progress. Plan Of Treatment Pending Test Test Name Order Date Pathology 12/11/2024 Future Test Test Name Order Date UPPER GI ENDOSCOPY 06/04/2020 COLONOSCOPY 10/18/2024 Insurance Providers Payer Name Payer Address Payer Phone Subscriber Number Group Number Insured Name Patient Relationship to Insured Coverage Start Date Coverage End Date [employer] [place] [address] [address] [place] [address] [id number] TIANNA ESPINOZA Self - patient is the insured Medical (General) History Medical History History ICD Code Elevated cholesterol Denies ME,DM,CVA,Lung disease,renal dise ase Negative colonoscopy in 1999 and 2014 in [place] by her report Negtaive EGD in 2002 in [place]--told of a hi atal hernia by her report Neg. ETT in summer EGD in 2019 with a small HH, but no esop hagitis or Barth's Surgical History Surgery Date(Month/Year) Cyst on left leg Tonsillectomy
--- OUTSIDE RECORDS SUMMARY | 2025-01-23 07:13 | XMS_ITS ---
Author Organization [facility] Address [address] [place] [address] Care Team Providers Care Criminal Intelligence Specialist Name Role Phone Krishan TATE, [place] Primary Care Provider Unava French Fink [phone] REASON FOR VISIT screening Encounters Encounter Location Date Provider Diagnosis [facility] [address] [place], [place] [phone] 12/11/2024 French Garcia Colon cancer scree rosemarie Z12.11 ; Colon polyps K63.5 ; Diverticulosis of large intestine without perforation or abscess without bleeding K57.30 and Other hemorrhoids K64.8 Assessments Encounter Date Diagnosis (ICD Code) Assessment Notes Treatment Notes Treatment Clinical Notes Section Notes 12/11/2024 Colon cancer screening (ICD-10 - Z12.11) 12/11/2024 Colon polyps (ICD-10 - K63.5) 12/11/2024 Diverticulosis of large intestine without perforation or abscess without bleeding (ICD-10 - K57.30) 12/11/2024 Other hemorrhoids (ICD-10 - K64.8) Plan Of Treatment No Information Progress Notes * URIAHESTERABENITOTIANNA IDOB: 1960 (64 yo F)Acc No.[id number]:12/11/2024 COLON WITH MAC Patient:?BENITO HUITRON I Provider:?French Garcia MD :1960???Age:64 Y???Sex:Female D ate:12/11/2024 Address:[address] [place] [address], [facility] Pcp:Juni Nickerson MD Subjective: * Chief Complaints: * ???1. Screening. * Medical History:? Objective: * Vitals:? Assessment: * Assessment: 1.?Colon cancer screening - Z12.11 (Primary)???2.?Colon polyps - K63.5???3.?Diverticulosis of large intestine without perforation or abscess without bleeding - K57.30???4.?Other hemorrhoids - K64.8??? Plan: * Treatment: * Procedure Codes:?15585 COLON OSCOPY AND BIOPSY, Modifiers: PT , 0529F INTRVL 3+YRS PTS CLNSCP DOCD, 0528F RCMND FLW-UP 10 YRS DOCD * * The named appointment provid er may or may not be the originator of this progress note, and it is not deemed complete until electronically signed by the appointment provider. Sign off status: Pending * Provider:?French Garcia MD Date:? 025 Generated for Charlette sheikh/Serg/eTransmitting on:?01/23/2025 07:13 AM EDT
[2025-01-23 07:24] LABS: MANUAL DIFF FLAG NO
[2025-01-23 07:46] LABS: Basophils Absolute Auto 0.1 X10*3/uL (0.0-0.2); Basophils Percent Auto 1.7 % (0-2); Eosinophils Absolute Auto 0.2 X10*3/uL (0.0-0.4); Eosinophils Percent Auto 4.2 % (0-4); Hemoglobin 11.9 g/dl (12.0-16.0); Imm Gran Abs Auto 0.01 X10*3/uL (0.00-0.03); Imm Gran Pct Auto 0.2 % (0.0-0.4); Lymphocytes Absolute Auto 1.7 X10*3/uL (1.2-4.9); Lymphocytes Percent Auto 43.2 % (20-40); Mean Corpuscular HGB Conc 32.2 g/dl (31.0-35.0); Mean Corpuscular Hemoglobin 26.3 pg (27.0-33.0); Mean Corpuscular Volume 81.7 fL (80.0-98.0); Mean Platelet Volume 10.3 fL (9.4-12.3); Monocytes Absolute Auto 0.5 X10*3/uL (0.1-1.2); Monocytes Percent Auto 12.9 % (2-11); Neutrophils Absolute Auto 1.5 x10*3/uL (2.0-8.3); Neutrophils Percent Auto 37.8 % (45-73); Platelet Count 286 X10*3/uL (160-400); Red Blood Count 4.53 X10*6/uL (4.20-5.50); Red Cell Distribution Width 14.6 % (11.0-16.0)
[2025-01-23 07:53] LABS: Appearance Urine Clear; Color Urine Yellow; Glucose Urine UA Negative (Negative); Leukocyte Esterase Urine Moderate (2+) (Negative); Nitrite Urine Negative (Negative); PH 6.5 (5.0-9.0); UMIC TRIGGER UACC YES; Urine Blood Negative (Negative); Urine Ketones Negative (Negative); Urine Protein Negative (Neg-Trace)
[2025-01-23 08:10] LABS: Bacteria Urine None Seen (None Seen); Hyaline Casts Urine 0-2 /LPF (0-2); RBC Urine 0-2 /HPF (0-2); UACC Culture Trigger YES; WBC Urine 0-5 /HPF (0-5)
[2025-01-23 08:25] LABS: Alanine Aminotransferase 41 U/L (0-31); Albumin Level 4.6 g/dL (3.5-5.0); Alkaline Phosphatase 44 U/L (39-117); Anion Gap 11 (12-20); Aspartate Amino Transferase 31 U/L (5-31); Bilirubin Total 0.4 mg/dL (0.0-1.0); Blood Urea Nitrogen 13 mg/dL (9-16); Calcium 9.5 mg/dL (8.4-10.2); Carbon Dioxide 27 mmol/L (22-29); Chloride 108 mmol/L (96-108); Cholesterol 146 mg/dL (<200); Estimated Glomerular Filt Rate > 60; Glucose Fasting 91 mg/dL (60-99); HDL Cholesterol 48 mg/dL (>40); LDL Cholesterol Calculated 86 mg/dL (<100); Potassium 4.6 mmol/L (3.3-5.1); Sodium 141 mmol/L (135-145); Total Protein 7.2 g/dL (6.5-8.0); Triglycerides 63 mg/dL (<150)
[2025-01-23 08:33] LABS: TSH reflex Free T4 2.11 uIU/mL (0.32-4.0)
== END 2025-01-23 07:11 | disposition home or self-care (01) ==
LOC: HO.LAB 07:10
PROVIDERS: Visit Provider Internal Medicine
DX: Z00.00 Encounter for general adult medical examination without abnormal findings (principal); E78.00 Pure hypercholesterolemia, unspecified; E55.9 Vitamin D deficiency, unspecified; D64.9 Anemia, unspecified; R30.0 Dysuria
CPT/HCPCS: 36415; 80053; 80061; 81001; 82306; 84443; 85025; 87086